=== PATIENT | female | born 1985 | race Caucasian/White ===

== ENCOUNTER 2023-06-06 11:29 | Outpatient (CLI) | payer OTHER, SELFPAY ==
[2023-06-06 12:46] LABS: Basophils Absolute Auto 0.1 K/mm3 (0.0-0.1); Basophils Percent Auto 1.2 % (0.2-1.2); Eosinophils Absolute Auto 0.1 K/mm3 (0-0.3); Hematocrit 38.5 % (37.0-47.0); Hemoglobin 12.3 g/dL (12.0-15.0); Immature Granulocyte Absolute 0.01 K/mm3 (0.00-0.031); Immature Granulocyte Percent A 0.2 % (0-0.5); Lymphocytes Percent Auto 27.2 % (18.3-44.2); Mean Corpuscular HGB Conc 31.9 g/dl (32-36); Mean Corpuscular Hemoglobin 27.9 pg (26-34); Mean Corpuscular Volume 87.3 fl (80-100); Mean Platelet Volume 9.4 fl (7.4-10.4); Monocytes Absolute Auto 0.3 K/mm3 (0.1-0.6); Monocytes Percent Auto 5.3 % (2.6-8.5); Neutrophils Absolute Auto 3.4 K/mm3 (1.3-6.7); Neutrophils Percent Auto 65.1 % (45.5-73.1); Platelet Count Result 304 k/mm3 (150-375); Red Blood Count 4.41 M/mm3 (4.2-5.4); Red Cell Distribution Width 13.6 % (11.5-14.5); White Blood Count 5.1 K/mm3 (4.5-10.0)
== END 2023-06-06 11:30 | disposition home or self-care (01) ==
PROVIDERS: Visit Provider Internal Medicine Pulmonary Disease
DX: J44.9 Chronic obstructive pulmonary disease, unspecified (principal)
CPT/HCPCS: 36415; 85025

== ENCOUNTER 2023-07-06 09:49 | Outpatient (CLI) | payer OTHER, SELFPAY ==
--- NOTE | 2023-07-06 13:54 | WPDPFTINT ---
PFT Procedure Performed PFT Procedure Performed Spirometry with Pre/Post Bronchodilator Plethysmography (Lung Vol) Diffusing Cap (DLCO) Flow Vol Loop PFT Interpretation Lung volumes were measured with the body plethysmography method. Lung volumes are unremarkable. Spirometry showed normal expiratory flow rates and a normal FEV1 to FVC ratio of 87%. Following administration of a bronchodilator there was significant increase in the FVC. Lung diffusion capacity is within the normal range at 97% predicted. The flow-volume loop is unremarkable. This significant response to bronchodilators may be related to underlying obstructive airway disease. Clinical correlation advised. Impression: Spirometry, lung volumes and lung diffusion capacity all within the normal range.
== END 2023-07-06 09:50 | disposition home or self-care (01) ==
LOC: ANHPFT 09:49
PROVIDERS: Visit Provider Internal Medicine Pulmonary Disease
DX: J45.990 Exercise induced bronchospasm (principal)
CPT/HCPCS: 94060; 94726; 94729

== ENCOUNTER 2025-07-20 17:47 | Emergency (ER) | payer OTHER, SELFPAY ==
--- OUTSIDE RECORDS SUMMARY | 2018-07-25 06:05 | XMS_ITS | Continuity of Care Document ---
Author Organization [facility] Address [address] [place] [address] Phone Care Team Providers Care Medical Records Receptionist Name Role Phone Andrew Coffman MD Unavailable Unavailable Advance Directives Directive Yes / No Effective Date File Name No Information Encounters Encounter Description Practice Location Reason(s) For Visit Diagnoses Date Provider Providers Copied on Encounter [facility], [address], [place], [place], [id number], [place] tel:[phone] [facility] [place] No Information 8 Augustus Morales. [address], [place], [place], [id number] , [place]. [phone] Family History Family Member Type Diagnosis Age At Onset No Information Payers Payer name Insurance type Covered republican ID Authoriza tion(s) No Information Social History Type Description Quantity Date Captured Comments Sex Female Smoking Status No Information Chief Complaint And Reason For Visit No Information Reason For Referral Reason For Referral No Information History Of Present Illness Encounter Date Complaint History Of Prese nt Illness No Information Functional Status Date Functional Assessmen t No Information Instructions Date Instruction Additional Infor mation No Information Assessments Type Assessment Date No Information Patient Care Teams Name Effective Dates (start - stop) Status Members No Information
--- OUTSIDE RECORDS SUMMARY | 2025-03-03 04:00 | XMS_ITS ---
Author Organization [facility] Address [address] [place] [address] Care Team Providers Care Broth Mixer Name Role Phone Cesia Morgan [phone] REASON FOR VISIT Thyroid FU Encounters Encounter Location Date Provider Diagnosis AMMO Dr. Morgan [id number] [place] [phone] 03/03/2025 Cesia Morgan Plan Of Treatment Next Appt Details Provider Name:Cesia Morgan, 10:40:00 AM, [address] [place] [address], [phone], Progress Notes * Jose Ramon ROGELOB:1985 (40 yo F)Acc No.[id number]:03/03/2025 Progress Notes Patient: Alysia Bermudez Provider: Elaine Morgan MD :1985 A ge:39 Y S ex:Female Date:03/03/2025 Phone: Address:[facility] [address] [id number] Subjective: * Chief Complaints: * T hyroid FU * Electronic signature of Adolfo Morgan MD on 07/20/2025 at 05:50 PM CDT Sign off status: Pending * Provider: Elaine Morgan MD Date: 0 03/03/2025 Generated for Printi ng/Familtong/eTransmitting on: 1 05:50 PM CDT
--- OUTSIDE RECORDS SUMMARY | 2025-05-08 03:40 | XMS_ITS ---
Author Organization [facility] Address [address] [place] [address] Care Team Providers Care Pcat Instructor Name Role Phone Cesia Morgan [phone] REASON FOR VISIT lab (text) Encounters Encounter Location Date Provider Diagnosis AMMO Dr. Morgan [address] [place] [phone] 05/08/2025 Cesia Morgan Plan Of Treatment Next Appt Details Provider Name:Cesia Eddie, 10:40:00 AM, [address] [place] [address], [phone], Progress Notes * Jose Ramon ROGELOB:1985 (40 yo F)Acc No.[id number]:05/08/2025 Progress Note Patient: Alysia Bermudez Provider: Elaine Morgan MD :1985 A ge:40 Y S ex:Female Date:05/08/2025 Phone: Address:[facility] [address] [id number] Subjective: * Chief Complaints: * L ab (text) * Electronic signature of Adolfo Morgan MD on 07/20/2025 at 05:49 PM CDT Sign off status: Pending * Provider: Elaine Morgan MD Date: 0 05/08/2025 Generated for Printi ng/Faxing/eTransmitting on: 1 05:49 PM CDT
--- OUTSIDE RECORDS SUMMARY | 2025-05-16 05:00 | XMS_ITS ---
Author Organization [facility] Address [address] [place] [address] Care Team Providers Care Miniature Model Maker Name Role Phone Eddie Cesiadominik Johnson [phone] REASON FOR VISIT lab follow up Medications Medication SIG (Take, Route, Frequency, Duration) Notes Start Date End Date Status Ergocalciferol 1.25 MG (98529 UT) Capsule 1 capsule Orally weekly; Duration: 90 days 01/22/2025 Active Zoloft 25 MG Tablet 1 tablet Orally Once a day Active dexAMETHasone 1 MG Tablet 1 tablet Orally at 10 pm night before 8 am cortisol; Duration: 1 days 04/25/2025 Active Unithroid 75 MCG Tablet 1 tablet in the morning on an empty stomach Orally Once a day; Duration: 90 days 02/25/2025 Active BuSpar 15 mg twice daily Active Topamax 25 MG Tablet 1 tablet Orally Onc e a day in am Active Topamax 150mg at night Activ e ZyrTEC 10 MG Tablet Chewable 1 tablet Orally Once a day Active Unithroid 75 MCG Tablet 1 tablet in the morning on an empty stomach Orally Once a day; Duration: 30 days 01/22/2025 Active Encounters Encounter Location Date Provider Diagnosis AMMO Dr. Morgan [address] [place] [phone] 05/16/2025 Cesia Morgan Plan Of Treatment Next Appt Details Provider Name:Cesia Morgan, 10:40:00 AM, [address] [place] [address], [phone], Progress Notes * Jose Ramon ROGELOB:1985 (40 yo F)Acc No.[id number]:05/16/2025 Progress Notes Patient: Alysia Bermudez Provider: Elaine Morgan MD :1985 A ge:40 Y S ex:Female Date:05/16/2025 Phone: Address:[address], [place], [id number] Subjective: * Chief Complaints: * L ab follow up * Medications: T akingUnithroid 75 MCG Tablet 1 tablet in the morning on an empty stomach Orally Once a day ZyrTEC 10 MG Tablet Chewable 1 tablet Orally Once a day Topamax , Notes to Pharmacist: 150mg at nightTopamax 25 MG Tablet 1 tablet Orally Once a day in am BuSpar , Notes to Pharmacist: 15 mg twice dailyZoloft 25 MG Tablet 1 tablet Orally Once a day Ergocalciferol 1.25 MG (50623 UT) Capsule 1 capsule Orally weekly Unithroid 75 MCG Tablet 1 tablet in the morning on an empty stomach Orally Once a day dexAMETHasone 1 MG Tablet 1 tablet Orally at 10 pm night before 8 am cortisol Taking Unithroid 75 MCG Tablet 1 tablet in the morning on an empty stomach Orally Once a day Taking ZyrTEC 10 MG Tablet Chewable 1 tablet Orally Once a day Taking Topamax , Notes to Pharmacist: 150mg at nightTaking Topamax 25 MG Tablet 1 tablet Orally Once a day in am Taking BuSpar , Notes to Pharmacist: 15 mg twice dailyTaking Zoloft 25 MG Tablet 1 tablet Orally Once a day Taking Ergocalciferol 1.25 MG (03878 UT) Capsule 1 capsule Orally weekly Taking Unithroid 75 MCG Tablet 1 tablet in the morning on an empty stomach Orally Once a day Taking dexAMETHasone 1 MG Tablet 1 tablet Orally at 10 pm night before 8 am cortisol * Electronic signature of Adolfo Morgan MD on 07/20/2025 at 05:50 PM CDT Sign off status: Pending * Provider: Elaine Morgan MD Date: 0 05/16/2025 Generated for Reymundo nicole/Rosemary/José on: 1 05:50 PM CDT
--- OUTSIDE RECORDS SUMMARY | 2025-05-19 07:30 | XMS_ITS ---
Author Organization [facility] Address [address] [place] [address] Care Team Providers Care Training And Development Director Name Role Phone Cesia Morgan [phone] REASON FOR VISIT lab review Encounters Encounter Location Date Provider Diagnosis AMMO Dr. Morgan [address] [place] [phone] 05/19/2025 Cesia Morgan Plan Of Treatment Next Appt Details Provider Name:Cesia Morgan, 10:40:00 AM, [address] [place] [address], [phone], Progress Notes * Jose Ramon ROGELOB:1985 (40 yo F)Acc No.[id number]:05/19/2025 Progress Notes Patient: Alysia Bermudez Provider: Elaine Morgan MD :1985 A ge:40 Y S ex:Female Date:05/19/2025 Phone: Address:[facility] [address] [id number] Subjective: * Chief Complaints: * L ab review * Electronic signature of Adolfo Morgan MD on 07/20/2025 at 05:49 PM CDT Sign off status: Pending * Provider: Elaine Morgan MD Date: 0 05/19/2025 Generated for Printi ng/Faxing/eTransmitting on: 1 05:49 PM CDT
--- NOTE | 2025-07-20 17:49 | ED_ITS ---
HPI - URI/Sore Throat General Chief Complaint: Upper Respiratory Infection Stated Complaint: body aches/throat/ears/headache Time Seen by Provider: 07/20/25 17:58 Source: patient, RN notes reviewed and old records reviewed Mode of arrival: ambulatory Limitations: no limitations History of Present Illness HPI Narrative: 40-year-old female presents to the [facility] with complaints of body aches, sore throat, headache and ear pain since yesterday. Did take Tylenol. Reports daughter tested positive yesterday for strep Treatments prior to arrival: acetaminophen Related Data Home Medications ?Medication ?Instructions ?Recorded ?Confirmed ?Last Taken ?Type buspirone 15 mg tablet 10 mg PO ONCE 06/06/23 Unkn own History cetirizine 10 mg tablet 5 mg PO DAILY PRN 06/06/23 Unknown History topiramate 100 mg tablet (Topamax) 100 mg PO DAILY 02/21 Unknown History levothyroxine 75 mcg tablet mcg 07/20/25 Unknown Hist ory (Unithroid) liothyronine 5 mcg tablet mcg 07/20/25 Unknown Histor y ubrogepant 100 mg tablet (Ubrelvy) mg 07/20/25 Unknow n History Allergies Allergy/AdvReac Type Severity Reaction Status Date / Time hydrocodone Allergy Intermediate itchy Verified 07/20/25 17:58 Review of Systems Review of Systems: All systems reviewed & are unremarkable except as noted in HPI and below Constitutional: Constitutional: Reports as per HPI, Reports body ache(s) and Reports headache(s) ENT: Reports as per HPI, Reports otalgia and Reports sore throat Cardiovascular: Cardiovascular: Reports no additional cardiovascular complaints, Denies chest pain and Denies dyspnea Respiratory: Respiratory: Reports no additional respiratory complaints, Denies chest congestion, Denies cough and Denies dyspnea Musculoskeletal: Musculoskeletal: Reports no additional musculoskeletal complaints Integumentary/Breasts: Skin/Breast: Reports system reviewed and no additional complaints, except as docu PMFSH Past Medical History Medical History Asthma Migraines Plantar fascial fibromatosis of right foot Surgical History Surgical History (Updated 06/06/23 @ 09:02 by Cindy Barker MA) H/O: hysterectomy Family History Family History Mother Anxiety Depression Father H/O heart artery stent Social History Social History Smoking status: Former smoker Comments At the time of my signature, I reviewed and agree with the nursing past medical, surgical, social, and family history. There is no relevant family history pertinent to the patient complaint. Exam Const: General: cooperative, no acute distress, well developed, alert, tired appearing and well nourished Nutritional Appearance: well nourished Orientation/consciousness: patient oriented x3 Limitations: no limitations HENMT: Head: normal to inspection Ears: hearing grossly normal bilaterally, external ears normal, TM normal on the left and TM abnormal perforated (2:00 o'clock, chronic); not erythematous Face/Nose/Sinus: Normal external nose present, Normal nares present and Normal nasal mucous membranes and turbinates present Mouth: Yes Normal oral and palatal mucosa present, Yes lip normal, Yes tongue normal and Yes moist mucous membranes abnormal Throat: posterior oropharynx normal, uvula midline and no uvular edema Eyes: General: appearance normal, both eyes and all related structures Alignment and Position: alignment normal Neck: Neck: normal visual inspection, full ROM, no lymphadenopathy and no meningeal signs Chest: Chest palpation & inspection: normal inspection of the chest Resp: Effort & Inspection: normal respiratory effort and able to speak in comp lete sentences Auscultation: clear to auscultation bilaterally, no crackles, no rales, no rhonchi and no wheezes Cardio: Rate: regular rate Skin: General skin exam: normal color and no rashes or lesions noted Neuro: General: patient oriented x3, gait normal, moves all extremities and no meningeal signs Cognition (Neuro): normal cognition Speech: normal speech Gait exam (Neuro): Normal gait present Extrem: General: normal to inspection, full ROM, capillary refill normal and normal gait Psych: Appearance: grossly normal and well kempt Mental Status: mental status grossly normal Speech and movement: Normal speech and movement present and Clear speech present Affect: normal affect Attitude: cooperative Course Course Level of Care: Express Care Visit Vital Signs Vital signs: Vital Signs Temperature 97.6 F 07/20/25 17:52 Pulse Rate 68 07/20/25 17:52 Respiratory Rate 20 07/20/25 17:52 Blood Pressure 123/60 07/20/25 17:52 Pulse Oximetry 98 07/20/25 17:52 Oxygen Delivery Room Air 07/20/25 17:52 Temperature 97.6 F 07/20/25 17:52 Pulse Rate 68 07/20/25 17:52 Respiratory Rate 20 07/20/25 17:52 Blood Pressure 123/60 07/20/25 17:52 Pulse Oximetry 98 07/20/25 17:52 Oxygen Delivery Room Air 07/20/25 17:52 Reviewed MDM - URI/Sore Throat MDM Narrative Medical decision making narrative: Patient sitting comfortably in exam room. Patient is nontoxic, vitals stable. Patient presents with 1 day history of sore throat, body aches, headache and ear pain. Strep flu and COVID are negative, will strep culture. Patient appropriate for outpatient treatment with close follow-up of viral URI, viral pharyngitis Discharge instructions reviewed with patient, as well as provided in writing per nursing staff. The instructions also include specific and strict return/GO TO THE ER as well as f/u information. All questions have been answered, and the patient deny any further questions with discharge and discharge plan. Some parts of this dictation were generated by voice recognition software and may contain typographical and/or grammatical inaccuracies. Differential Diagnosis Differential diagnosis: Likely upper respiratory infection, otitis media, sinusitis, viral infection, bronchitis, influenza and pharyngitis Lab Data Labs: Lab Results 07/20/25 07/20/25 Range/Units 18:07 18:25 POC Influenza A Ag Negative (Negative) POC Influenza B Ag Negative (Negative) POC SARS CoV-2 Ag Negative (Negative) POC Grp A Strep Screen Negative (Negative) Reviewed Critical Care Time Critical Care Time Critical Care Time: No Discharge Plan Discharge Clinical Impression: Viral infection Upper respiratory infection Qualifiers: URI type: unspecified viral URI Qualified Code(s): J06.9 - Acute upper respiratory infection, unspecified Pharyngitis Qualifiers: Pharyngitis/tonsillitis etiology: unspecified etiology Qualified Code(s): J02.9 - Acute pharyngitis, unspecified Patient Disposition: Home Condition: Stable Instructions: Antibiotic Form, Pharyngitis (ED), Viral Syndrome (ED) Additional Instructions: Your rapid strep swab was negative today at [facility]. A throat culture will be sent to the laboratory for further testing. If the test is positive, you will receive a phone call within 48 hours and an appropriate antibiotic will be initiated at that time. Your rapid COVID test were negative Your rapid flu test was negative Your symptoms are likely due to a viral illness, which is not treated with antibiotics. Typically viral infections last 7-10 days, can linger for couple of weeks. It is very important to treat your symptoms. Drink plenty of water, Gatorade, Pedialyte, ice pops or Jell-O. -Alternate Tylenol and Motrin per package directions for fever or pain. You can alternate every 4 hours -Antihistamine medication such as Zyrtec/Claritin/Kristy during the day can help improve symptoms. -doing daily nasal irrigations can help relieve pressure your sinuses. Things like a Neti pot -Use Flonase twice a day for 5 days then daily to help reduce the inflammation and dry up your sinuses. -You can also use Mucinex. Be sure to drink plenty of water with this medication at least 8 ounces with every dose and it is important to drink 8 to 10 glasses of water per day. Water is a natural decongestant -Eat and drink things that are easy to swallow, like tea or soup, or popsicles. -Oral rinses such as: Salt water gargles and/or may use topical anesthetic (eg. Chloraseptic spray) or lozenges to relieve dryness or throat pain). -Frequent hand washing or hand terra cotta roofer is one of the best ways to prevent spread of infection. -Using a vaporizer or humidifier at night will also help thin secretions and help with coughing up phlegm. -Follow up with primary care provider in 7-10 days if condition is not improving - For new or worsening symptoms go directly to the nearest ER Patient Language: Turkmen Prescriptions: No Action liothyronine 5 mcg tablet levothyroxine [Unithroid] 75 mcg tablet Ubrelvy 100 mg tablet cetirizine 10 mg tablet 5 mg PO DAILY PRN buspirone 15 mg tablet 10 mg PO ONCE topiramate [Topamax] 100 mg tablet 100 mg PO DAILY Follow-up/Referrals: UNKNOWN,DOCTOR [Non-Staff] Stand Alone Forms: Work/School Release IP Time of Disposition: 18:17
--- OUTSIDE RECORDS SUMMARY | 2025-07-20 17:49 | XMS_ITS | Encounter Summary ---
Author Organization [facility] Address [address] [place] [address] Care Team Providers Care Order Dispatcher Name Role Phone Unavailable Primary Care Provider Unavailabl e Prior Encounters Date Type Department Care Team Description 10/21/2019 Converted 13x Documents [facility] [address] [place] [address] <No scans attached> 10/21/2019 Converted CPS Chart Documents [facility] [address] [place] [address] <No scans attached> 10/21/2019 Converted 13x Documents [facility] [address] [place] [address] <No scans attached> Plan of Treatment Not on file Procedures Procedure Name Priority Date/Time Associated Diagnosis Comments PERIO MAINTENANCE Routine 09/19/2019 12: 00 AM PST ORAL HYGIENE INSTRUCTIONS Routine 2018 12:00 AM PST TOPICAL APPLICATION OF FLUORIDE VARNISH Routine 09/19/2019 12:00 AM PST PERIO MAINTENANCE Routine 06/06/2019 12: 00 AM PDT ORAL HYGIENE INSTRUCTIONS Routine 2018 12:00 AM PDT TOPICAL APPLICATION OF FLUORIDE VARNISH Routine 06/06/2019 12:00 AM PDT PERIODIC ORAL EVALUATION - ESTABLISHED PATIENT Routine 06/06/2019 12:00 AM PDT BITEWINGS - FOUR RADIOGRAPHIC IMAGES Routine 06/06/2019 12:00 AM PDT ADDITIONAL X-RAY Routine 06/06/2019 12:0 0 AM PDT ADDITIONAL X-RAY Routine 06/06/2019 12:0 0 AM PDT ADDITIONAL X-RAY Routine 06/06/2019 12:0 0 AM PDT ADDITIONAL X-RAY Routine 06/06/2019 12:0 0 AM PDT ADDITIONAL X-RAY Routine 06/06/2019 12:0 0 AM PDT SINGLE X-RAY Routine 06/06/2019 12:00 AM PDT INTRAORAL PHOTO Routine 06/06/2019 12:00 AM PDT INTRAORAL PHOTO Routine 06/06/2019 12:00 AM PDT INTRAORAL PHOTO Routine 06/06/2019 12:00 AM PDT INTRAORAL PHOTO Routine 06/06/2019 12:00 AM PDT PERIO MAINTENANCE Routine 02/28/2019 12: 00 AM PDT ORAL HYGIENE INSTRUCTIONS Routine 2018 12:00 AM PDT COMPREHENSIVE PERIODONTAL EVALUATION - NEW OR ESTABLISHED PATIENT Routine 02/13/2019 12:00 AM PDT CANCELLED APPOINTMENT Routine 01/03/2019 12:00 AM PDT OFFICE VISIT FOR OBSERVATION (DURING REGULARLY SCHEDULED HOURS) - NO OTHER SERVICES PERFORMED Routine 11/23/2018 12:00 AM PST 2 DOL CEREC ONLAY 3 SURF Routine 019 12:00 AM PST 2 SEAT ONLAY Routine 11/19/2018 12:00 AM PST UR PERIODONTAL SCALING AND ROOT PLANING - FOUR OR MORE TEETH PER QUADRANT Routine 11/19/2018 12:00 AM PST UL PERIODONTAL SCALING AND ROOT PLANING - FOUR OR MORE TEETH PER QUADRANT Routine 11/19/2018 12:00 AM PST LR PERIODONTAL SCALING AND ROOT PLANING - FOUR OR MORE TEETH PER QUADRANT Routine 11/19/2018 12:00 AM PST LL PERIODONTAL SCALING AND ROOT PLANING - FOUR OR MORE TEETH PER QUADRANT Routine 11/19/2018 12:00 AM PST ORAL HYGIENE INSTRUCTIONS Routine 2018 12:00 AM PST LR RO DECON/QD Routine 11/19/2018 12:00 AM PST LL RO DECON/QD Routine 11/19/2018 12:00 AM PST UL RO DECON/QD Routine 11/19/2018 12:00 AM PST UR RO DECON/QD Routine 11/19/2018 12:00 AM PST UR ANTIBACT IRR/QUAD Routine 11/19/2018 12:00 AM PST UL ANTIBACT IRR/QUAD Routine 11/19/2018 12:00 AM PST LR ANTIBACT IRR/QUAD Routine 11/19/2018 12:00 AM PST LL ANTIBACT IRR/QUAD Routine 11/19/2018 12:00 AM PST TOPICAL APPLICATION OF FLUORIDE VARNISH Routine 11/19/2018 12:00 AM PST 14 LO COMPOSITE FILLING Routine 11/19/19 19 12:00 AM PST 3 LO COMPOSITE FILLING Routine 9 12:00 AM PST 30 O COMPOSITE FILLING Routine 9 12:00 AM PST 29 O COMPOSITE FILLING Routine 9 12:00 AM PST 20 O COMPOSITE FILLING Routine 9 12:00 AM PST 13 O COMPOSITE FILLING Routine 9 12:00 AM PST 4 O COMPOSITE FILLING Routine 11/19/2018 12:00 AM PST 11 L COMPOSITE FILLING Routine 9 12:00 AM PST 10 L COMPOSITE FILLING Routine 9 12:00 AM PST 9 L COMPOSITE FILLING Routine 11/19/2018 12:00 AM PST 31 POST AND CORE IN ADDITION TO CROWN, INDIRECTLY FABRICATED Routine 10/31/2018 12:00 AM PST 31 CROWN - FULL CAST HIGH GALLAGHER METAL Routine 10/31/2018 12:00 AM PST 19 O AMALGAM 1 SURFACE Routine 9 12:00 AM PST 18 O AMALGAM 1 SURFACE Routine 9 12:00 AM PST 15 O AMALGAM 1 SURFACE Routine 9 12:00 AM PST 14 O AMALGAM 1 SURFACE Routine 9 12:00 AM PST 3 O AMALGAM 1 SURFACE Routine 10/31/2018 12:00 AM PST 2 O AMALGAM 1 SURFACE Routine 10/31/2018 12:00 AM PST 31 ENDODONTIC THERAPY, MOLAR TOOTH (EXCLUDING FINAL SHINTO) Routine 10/31/2018 12:00 AM PST COMPREHENSIVE ORAL EVALUATION - NEW OR ESTABLISHED PATIENT Routine 10/31/2018 12:00 AM PST PANORAMIC RADIOGRAPHIC IMAGE Routine 10/31/2018 12:00 AM PST INTRAORAL - COMPREHENSIVE SERIES OF RADIOGRAPHIC IMAGES Routine 10/31/2018 12:00 AM PST INTRAORAL PHOTO Routine 10/31/2018 12:00 AM PST INTRAORAL PHOTO Routine 10/31/2018 12:00 AM PST INTRAORAL PHOTO Routine 10/31/2018 12:00 AM PST INTRAORAL PHOTO Routine 10/31/2018 12:00 AM PST 30 O COMPOSITE FILLING Routine 9 12:00 AM PST 7 L COMPOSITE FILLING Routine 10/31/2018 12:00 AM PST Visit Diagnoses Not on file
--- OUTSIDE RECORDS SUMMARY | 2025-07-20 17:49 | XMS_ITS | Encounter Summary ---
Author Organization [facility] Address [address] [place] [address] Care Team Providers Care Burial Vault Deliverer And Installer Name Role Phone None, Provider Primary Care Provider Wu Santillan DO Primary Care Provider [phone] Encounter Details Date Type Department Care Team (Late st Contact Info) Description 12/22/2022 Prep for Procedure [facility] [place] [address] Adeline Woods MD [address] [place] [address] Social History Tobacco Use Types Packs/Day Years Used Date Smoking Tobacco: Never Smokeless Tobacco: Never Alcohol Use Standard Drinks/Week Comments Not Currently 0 (1 standard drink = 0.6 oz pur e alcohol) a beer or two a month Comments No Sex and Gender Information Value Date Recorded Sex Assigned at Female 11/22/2024 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 No / Unsure 12/22/2022 3:27 PM CDT documented as of this encounter Plan of Treatment Upcoming Encounters Date Type Department Care Team (Late st Contact Info) Description 03/02/2026 9:00 AM CDT Office Visit [facility]ial[facility] - [facility] [address], [address] [place] [address] Luna Thornton MD [address] [place] [address] documented as of this encounter Results * TYPE & SCREEN (12/22/2022 3:35 PM CDT) ABO/RH A POSITIVE 12/22/2022 4:35 PM CDT [facility] ANTIBODY SCREEN NEGATIVE 12/22/2022 4:35 PM CDT [facility] SAMPLE EXPIRATION 01/07/2023,2 359 01/04/2023 7:55 AM CDT [facility] COMMENT NO HISTORY OF TRANSFUSIONS , OR ANTIBODIES, NEW SPECIMEN NOT NEEDED 01/04/2023 7:55 AM CDT [facility] 12/22/2022 3:35 PM CDT us Adeline Woods MD BLOOD BANK TEST ORDERABLES Final Result [facility] [address] [place] [address], [place] [phone] * (ABNORMAL) CBC W/DIFF AUTOMATED (12/22/2022 3:34 PM CDT) WBC 5.9 4.5 - 11.0 x10'3/uL 12/22/2022 3:52 PM CDT [facility] RBC 4.57 4.20 - 5.40 x10'6/uL 12/22/2022 3:52 PM CDT [facility] HGB 11.7(L) 12.0 - 16.0 G/DL 12/22/2022 3:52 PM CDT [facility] HCT 37.9(L) 38.0 - 48.0 % 12/22/2022 3:52 PM CDT [facility] MCV 82.9 81.0 - 99.0 FL 12/22/2022 3:52 PM CDT [facility] MCH 25.6(L) 27.0 - 31.0 PG 12/22/2022 3:52 PM CDT [facility] MCHC 30.9(L) 32.0 - 36.0 G/DL 12/22/2022 3:52 PM CDT [facility] RDW 14.3 11.5 - 14.5 % 12/22/2022 3:52 PM CDT [facility] PLT 337 130 - 400 x10'3/uL 12/22/2022 3:52 PM CDT [facility] MPV 9.3 9.3 - 12.2 FL 12/22/2022 3:52 PM CDT [facility] DIFFERENTIAL TYPE AUTOMATED DIFFERENTIAL 12/22/2022 3:52 PM CDT [facility] NEUTROPHILS % 66.3 % 12/22/2022 3:52 PM CDT [facility] LYMPHOCYTES % 26.0 % 12/22/2022 3:52 PM CDT [facility] MONOCYTES % 5.9 % 12/22/2022 3:52 PM CDT [facility] EOSINOPHILS 1.0 % 12/22/2022 3:52 PM CDT [facility] BASOPHILS 0.5 % 12/22/2022 3:52 PM CDT [facility] IMMATURE GRANS % 0.3 % 12/23/19 3:52 PM CDT [facility] ABS. NEUTROPHILS TOTAL 3.90 1.80 - 7.70 x10'3/uL 12/22/2022 3:52 PM CDT [facility] ABS. LYMPHOCYTES 1.53 1.00 - 4.80 x10'3/uL 12/22/2022 3:52 PM CDT [facility] ABS. MONOCYTES 0.35 0.24 - 0.86 x10'3/uL 12/22/2022 3:52 PM CDT [facility] ABS. EOSINOPHILS 0.06 0.04 - 0.36 x10'3/uL 12/22/2022 3:52 PM CDT [facility] ABS. BASOPHILS 0.03 0.01 - 0.08 x10'3/uL 12/22/2022 3:52 PM CDT [facility] ABS. IMMATURE GRANULOCYTES 0.02 0.00 - 0.49 x10'3/uL 12/22/2022 3:52 PM CDT [facility] 12/22/2022 3:34 PM CDT us Adeline Woods MD LABORATORY Final Result [facility] [address] [place] [address], documented in this encounter Visit Diagnoses Diagnosis Menorrhagia- Primary Excessive or frequent menstruation Dysmenorrhea Preop examination Preoperative examination, unspecified documented in this encounter Care Teams Burial Vault Deliverer And Installer Relationship Specialty Start Date End Date None, Provider, PCP - General 06/03/22 03/30/25 Wu Valerio DO [address] [facility], [address] [address] PCP - General FAMILY PRACTICE 03/31/25 documented as of this encounter
--- OUTSIDE RECORDS SUMMARY | 2025-07-20 17:49 | XMS_ITS | Clinical Summary ---
Author Organization [facility] Health Address [address] [place] [address] Care Team Providers Care Director [facility] Name Role Phone Unavailable Primary Care Provider Unavailabl e Social History Tobacco Use Types Packs/Day Years Used Date Smoking Tobacco: Never Assessed Comments Unknown Sex and Gender Information Value Date Recorded Sex Assigned at Not on file Legal Sex Female 5:27 AM PST Gender Identity Not on file Sexual Orientation Not on file Plan of Treatment Not on file
--- OUTSIDE RECORDS SUMMARY | 2025-07-20 17:49 | XMS_ITS | Patient Health Record ---
Author Organization [facility] Address [address] [place] [address] Care Team Providers Care Dye Penetrant Testing Technician Name Role Phone Cesia Morgan Unavailable [phone] Allergies No Known Allergies Results Component Value Reference Range Flag Notes .COMPREHENSIVE METABOLIC READ EL ([id number]) CMP Reviewed date:04/15/2025 12:53:38 PM Interpretation: Performing Lab:[facility]-[id number] Gadiel Chahal, YcjlycWT[address] Leno Moreno MD Notes/Report: FASTING:YES FASTING: YES GLUCOSE 100 65-99 mg/dL H For someone without known diabetes, a glucose value between 100 and 125 mg/dL is consistent with Fasting reference interval prediabetes and should be confirmed with a follow-up test. UREA NITROGEN (BUN) 10 7-25 mg/dL N CREATININE 0.69 0.50-0.97 mg/dL N EGFR 113 > OR = 60 mL/min/1.73m 2 N BUN/CREATININE RATIO SEE NOTE: 6-22 (calc) Not Reported: BUN and Creatinine are within reference range. SODIUM 138 135-146 mmol/L N POTASSIUM 4.3 3.5-5.3 mmol/L N CHLORIDE 111 98-110 mmol/L H CARBON DIOXIDE 20 20-32 mmol/L N CALCIUM 9.0 8.6-10.2 mg/dL N PROTEIN, TOTAL 6.6 6.1-8.1 g/dL N ALBUMIN 4.1 3.6-5.1 g/dL N GLOBULIN 2.5 1.9-3.7 g/dL (calc) N ALBUMIN/GLOBULIN RATIO 1.6 1.0-2.5 (calc) N BILIRUBIN, TOTAL 0.6 0.2-1.2 mg/dL N ALKALINE PHOSPHATASE 72 31-125 U/L N AST 12 10-30 U/L N ALT 14 6-29 U/L N .LIPID PANEL, STANDARD (7600 ) Reviewed date:04/10/2025 12:17:11 PM Interpretation: Performing Lab:HARISH [facility] An[facility]-[id number] Gadiel Chahal, IelatqLC[address] Leno Moreno MD Notes/Report: FASTING:YES FASTING: YES CHOLESTEROL, TOTAL 193 <200 mg/dL N HDL CHOLESTEROL 45 > OR = 50 mg/dL L TRIGLYCERIDES 84 <150 mg/dL N LDL-CHOLESTEROL 130 H Checo SS et al. KVNG. 2013;310(19): 6490-5965 (http://education.Trov/faq/UEJ591) with > or = 2 CHD risk factors. <70 mg/dL for patients with CHD or diabetic patients better accuracy than the Friedewald equation in the Reference range: <100 Desirable range <100 mg/dL for primary prevention; estimation of LDL-C. LDL-C is now calculated using the Muriel calculation, which is a validated novel method providing CHOL/HDLC RATIO 4.3 <5.0 (calc) N NON HDL CHOLESTEROL 148 <130 mg/dL (calc) H option. factor, treating to a non-HDL-C goal of <100 mg/dL (LDL-C of <70 mg/dL) is considered a therapeutic For patients with diabetes plus 1 major ASCVD risk .CBC (INCLUDES DIFF/PLT) (63 99) Reviewed date:04/10/2025 12:16:46 PM Interpretation: Performing Lab:Grant MOREIRA-[id number] Gadiel Chahal, CeowupLH[address] Leno Moreno MD Notes/Report: FASTING:YES FASTING: YES WHITE BLOOD CELL COUNT 6.0 3.8-10.8 Thousand/uL N RED BLOOD CELL COUNT 4.81 3.80-5.10 Million/uL N HEMOGLOBIN 13.7 11.7-15.5 g/dL N HEMATOCRIT 43.4 35.0-45.0 % N MCV 90.2 80.0-100.0 fL N MCH 28.5 27.0-33.0 pg N MCHC 31.6 32.0-36.0 g/dL L not clinically significant; however, it should be For adults, a slight decrease in the calculated MCHC interpreted with caution in correlation with other condition. value (in the range of 30 to 32 g/dL) is most likely red cell parameters and the patient's clinical RDW 12.4 11.0-15.0 % N PLATELET COUNT 282 140-400 Thousand/uL N MPV 8.9 7.5-12.5 fL N ABSOLUTE NEUTROPHILS 3726 0946-2193 cells/uL N ABSOLUTE LYMPHOCYTES [phone] cells/uL N ABSOLUTE MONOCYTES 348 200-950 cells/uL N ABSOLUTE EOSINOPHILS 90 15-500 cells/uL N ABSOLUTE BASOPHILS 30 0-200 cells/uL N NEUTROPHILS 62.1 N LYMPHOCYTES 30.1 N MONOCYTES 5.8 N EOSINOPHILS 1.5 N BASOPHILS 0.5 N ANALYZER(TM)JONE, IFA WITH RE FLEX TITER/PATTERN, SYSTEMIC AUTOIMMUNE PANEL 1 (48260) Reviewed date:06/22/2025 05:39:34 PM Interpretation: Performing Lab:EZ, [facility],[address] [facility], [facility] HospitalLrgoyopgjdGN[address] Desi Quick MD,PhD,FREDI Notes/Report: JONE SCREEN, IFA NEGATIVE NEGATIVE For additional information, please refer to suspicion for Sjogren's syndrome, testing for anti-SS-A/Ro (This link is being provided for informational/educational time, but is not definitive. If there is high clinical AC-0: Negative http://education.[facility] LearnShark.com/faq/UBO142 JONE IFA is a first line screen for detecting the presence of considered for clinically suspected inflammatory myopathies. antibody should be considered. Anti-Ariadna-1 antibody should be https://doi.org/10.1515/cclm -8788-0720 up to approximately 150 autoantibodies in various autoimmune purposes only.) International Consensus on JONE Patterns JONE-associated autoimmune disease is not present at this diseases. A negative JONE IFA result suggests an DNA AB (DS) CRITHIDIA,IFA NEGATIVE NEGATIVE CHROMATIN (NUCLEOSOMAL) ANTIBODY <1.0 NEG <1.0 NEGATIVE AI SM ANTIBODY <1.0 NEG <1.0 NEGATIVE AI SM/MAGAZINE SUPERVISOR ANTIBODY <1.0 NEG <1.0 NEGATIVE AI MAGAZINE SUPERVISOR ANTIBODY <1.0 NEG <1.0 NEGATIVE AI SJOGREN'S ANTIBODY (SS-A) <1.0 NEG <1.0 NEGATIVE AI SJOGREN'S ANTIBODY (SS-B) <1.0 NEG <1.0 NEGATIVE AI SCL-70 ANTIBODY <1.0 NEG <1.0 NEGATIVE AI ARIADNA-1 ANTIBODY <1.0 NEG <1.0 NEGATIVE AI CENTROMERE B ANTIBODY <1.0 NEG <1.0 NEGATIVE AI COMPLEMENT COMPONENT C3C 127 83-193 mg/dL COMPLEMENT COMPONENT C4C 26 15-57 mg/dL CARDIOLIPIN AB (IGA) <2.0 > or = 20.0 Antibody detected Value Interpretation <20.0 Antibody not detected ----- CARDIOLIPIN AB (IGG) <2.0 > or = 20.0 Antibody detected <20.0 Antibody not detected ----- Value Interpretation CARDIOLIPIN AB (IGM) <2.0 ----- > or = 20.0 Antibody detected Value Interpretation <20.0 Antibody not detected B2 GLYCOPROTEIN I (IGA)AB <2.0 > or = 20.0 Antibody detected ----- Value Interpretation <20.0 Antibody not detected B2 GLYCOPROTEIN I (IGG)AB <2.0 > or = 20.0 Antibody detected Value Interpretation ----- <20.0 Antibody not detected B2 GLYCOPROTEIN I (IGM)AB <2.0 at least 12 weeks before retesting to confirm antibody morbidity) and persistent positive antiphospholipid level antiphospholipid antibodies may sometimes be detected ----- <20.0 Antibody not detected clinical-pathologic correlation that includes a clinical purposes only.) http://education.[employer].com/faq/ERV044 lupus erythematosus (SLE) include testing for isotype IgA, antibodies (IgM, IgG Cardiolipin or b2GPI antibodies greater in the setting of infection, drug therapy or aging. persistence. The Systemic Lupus International Collaborating (This link is being provided for informational/educational > or = 20.0 Antibody detected which has yet to be incorporated into APS criteria. Low event (e.g. arterial or venous thrombosis, International consensus guidelines for APS suggest waiting Clinics immunological classification criteria for systemic The antiphospholipid antibody syndrome (APS) is a than the 99th percentile; or a lupus anticoagulant). Value Interpretation For additional information, please refer to RHEUMATOID FACTOR (IGA) <5 Reference Range: >6 POSITIVE <=6 NEGATIVE RHEUMATOID FACTOR (IGG) <5 Reference Range: >6 POSITIVE <=6 NEGATIVE RHEUMATOID FACTOR (IGM) <5 Reference Range: <=6 NEGATIVE >6 POSITIVE CYCLIC CITRULLINATED PEPTIDE (CCP) AB (IGG) <16 STRONG POSITIVE 40-59 20-39 NEGATIVE: Reference Range: >59 MODERATE POSITIVE: WEAK POSITIVE: <20 MUTATED CITRULLINATED VIMENTIN (MCV) AB <20 <20 U/mL rheumatoid factor and anti-cyclic citrullinated peptide a second-line marker of rheumatoid arthritis, in addition to Anti-mutated citrullinated vimentin antibody may be used as (CCP). THYROID PEROXIDASE ANTIBODIES <1 <9 IU/mL .HEMOGLOBIN A1c (496) Reviewed date:04/10/2025 12:17:00 PM Interpretation: Performing Lab:[facility] [id number] [facility] HospitalBlzuvkmON[address] Leno Moreno Notes/Report: FASTING:YES FASTING: YES HEMOGLOBIN A1c 5.4 <5.7 % of total Hgb N metrics may apply to specific patient populations. > or =6.5% Consistent with diabetes of diabetes. guidelines, hemoglobin A1c <7.0% represents optimal 5.7-6.4% Consistent with increased risk for diabetes Standards of Medical Care in Diabetes(ADA). (prediabetes) control in non- diabetic patients. Different hemoglobin A1c for diagnosis of diabetes in children. This assay result is consistent with a decreased risk According to [place] [employer] (ADA) Currently, no consensus exists regarding use of diabetes: For the purpose of screening for the presence of <5.7% Consistent with the absence of diabetes HOMOCYSTEINE (18202) Reviewed date:06/17/2025 07:46:53 PM Interpretation: Performing Lab:HARISH [facility]-[id number] Gadiel Chahal, HdfsyeFR[address] Leno Moreno MD Notes/Report: HOMOCYSTEINE 7.2 < or = 11.0 umol/L N exposure to nitrous oxide. differentiates between these deficiencies. Other causes Homocysteine is increased by functional deficiency of antagonists such as methotrexate and phenytoin, and of increased homocysteine include renal failure, folate Sharon Vasquez, et al., Gely Rn Document Improvement Specialist Med. 1999;131(5):331-9. folate or vitamin B12. Testing for methylmalonic acid INSULIN (561) Reviewed date:04/10/2025 12:16:36 PM Interpretation: Performing Lab:Grant MOREIRA-[id number] BatistaaKS[address] Leno Moreno MD Notes/Report: FASTING:YES FASTING: YES INSULIN 10.8 N Adult cardiovascular event risk category studies performed at [facility] Optimal < or = 18.4 cut points (optimal, moderate, high) in 2021. Moderate NA are based on Insulin Reference Interval Risk: High >18.4 Reference Range < or = 18.4 DHEA SULFATE (402) Reviewed date:05/14/2025 12:15:23 PM Interpretation: Performing Lab:Grant MOREIRA-Fred Newman[address] Leno Moreno MD Notes/Report: FASTING:NO COLLECTION KIT GIVEN TO PATIENT. PATIENT ADVISED TO RETURN. URINE VOLUME: 1999 FASTING: NO DHEA SULFATE 141 19-237 mcg/dL N VITAMIN B12/FOLATE, SERUM PA EUGENIO (3933) Reviewed date:04/10/2025 12:15:40 PM Interpretation: Performing Lab:Grant MOREIRAa1Jonathon LafleuraKS[address] Leno Moreno MD Notes/Report: FASTING:YES FASTING: YES VITAMIN B12 607 283-0901 pg/mL N FOLATE, SERUM 4.8 L Reference Range Borderline: 3.4-5.4 Normal: >5.4 Low: <3.4 T4, FREE (866) Reviewed date:04/10/2025 12:16:27 PM Interpretation: Performing Lab:Grant MOREIRAa1Jonathon LafleuraKS[address] Leno Moreno MD Notes/Report: FASTING:YES FASTING: YES T4, FREE 1.1 0.8-1.8 ng/dL N CORTISOL, TOTAL (367) Reviewed date:06/17/2025 07:46:53 PM Interpretation: Performing Lab:HARISH Advanova Jonathon MedinaaKS[address] Leno Moreno MD Notes/Report: CORTISOL, TOTAL 1.1 L Reference Range: For 4 p.m.(3-5 p.m.) Specimen: 3.0-17.0 relative to results previously obtained with this made in May 2025 by the reagent fly rail operator. The Cortisol result may be decreased on average 10-20% * Please interpret above results accordingly * Reference Range: For 8 a.m.(7-9 a.m.) Specimen: 4.0-22.0 method due to a recent quality improvement CORTISOL, TOTAL (367) Reviewed date:05/08/2025 07:52:01 PM Interpretation: Performing Lab:Grant MOREIRA LenexaKS[address] Leno Moreno MD Notes/Report: FASTING:YES FASTING: YES CORTISOL, TOTAL 29.5 H * Please interpret above results accordingly * Reference Range: For 8 a.m.(7-9 a.m.) Specimen: 4.0-22.0 Reference Range: For 4 p.m.(3-5 p.m.) Specimen: 3.0-17.0 TSH (899) Reviewed date:04/10/2025 12:16:17 PM Interpretation: Performing Lab:Grant MOREIRA LenexaKS[address] Leno Moreno MD Notes/Report: FASTING:YES FASTING: YES TSH 0.08 L Reference Range Ranges > or = 20 Years 0.40-4.50 Third trimester 0.43-2.91 First trimester 0.26-2.66 Second trimester 0.55-2.73 T3, FREE (15946) Reviewed date:04/10/2025 12:15:21 PM Interpretation: Performing Lab:Grant MOREIRA LenexaKS[address] Leno Moreno MD Notes/Report: FASTING:YES FASTING: YES T3, FREE 3.6 2.3-4.2 pg/mL N .VITAMIN D,25-OH,TOTAL,IA (1 7306) Reviewed date:04/10/2025 12:15:10 PM Interpretation: Performing Lab:Grant MOREIRA-[id number] Gadiel Chahal, YyhztkAW[address] Leno Moreno MD Notes/Report: FASTING:YES FASTING: YES VITAMIN D,25-OH,TOTAL,IA 61 30-100 ng/mL N Deficiency: <20 ng/mL (This link is being provided for informational/ educational purposes only.) For additional information, please refer to D2-supplementation and patients for whom quantitation 25-OH VIT D, (D2,D3), LC/MS/MS is recommended: order Vitamin D Status 25-OH Vitamin D: Note 1 http://education.[facility] LearnShark.com/faq/AQL441 See Note 1 Optimal: > or = 30 ng/mL of D2 and D3 fractions is required, the QuestAssureD(TM) Insufficiency: 20 - 29 ng/mL For 25-OH Vitamin D testing on patients on code 77371 (patients >2yrs). CORTISOL, LC/MS, SALIVA, 2 S AMPLES (98299) Reviewed date:05/24/2025 09:38:19 PM Interpretation: Performing Lab:Grant DANG/[facility],[address] [address] [facility] HospitalCA[address] Desi Quick MD,PhD,FREDI Notes/Report: SPLIT 05/13/2025 FROM [id number] URINE VOLUME: DRAW DATE 1 05/12/2025 DRAW TIME 1 0800AM CORTISOL, SALIVA SAMPLE 1 0.10 noon-2 PM: < OR = 0.21 mcg/dL It has not been cleared or approved by the FDA. This assay 10 PM-1 AM: < OR = 0.09 mcg/dL has been validated pursuant to the CLIA regulations and is characteristics have been determined by [facility]. 8-10 AM: 0.04-0.56 mcg/dL This test was developed and its analytical performance used for clinical purposes. 4-6 PM: < OR = 0.15 mcg/dL DRAW DATE 2 05/12/2025 DRAW TIME 2 0700PM CORTISOL, SALIVA SAMPLE 2 0.04 It has not been cleared or approved by the FDA. This assay This test was developed and its analytical performance characteristics have been determined by [facility]. 8-10 AM: 0.04-0.56 mcg/dL 10 PM-1 AM: < OR = 0.09 mcg/dL 4-6 PM: < OR = 0.15 mcg/dL has been validated pursuant to the CLIA regulations and is used for clinical purposes. noon-2 PM: < OR = 0.21 mcg/dL ACTH, PLASMA (211) Reviewed date:05/15/2025 07:21:01 PM Interpretation: Performing Lab:Grant VUONG/Estrellita SaucedotillyDeborah [id number] [facility] , AcuizwhbgAA[address] Johnny Arora M.D.,PhD Notes/Report: FASTING:NO COLLECTION KIT GIVEN TO PATIENT. PATIENT ADVISED TO RETURN. URINE VOLUME: 2000 FASTING: NO ACTH, PLASMA 18 6-50 pg/mL Reference range applies only to specimens collected between 7am-10am. DEXAMETHASONE (19028) Reviewed date:06/22/2025 05:39:34 PM Interpretation: Performing Lab:Grant DANG/[facility],[address] [facility]CA[address] Desi Quick MD,PhD,FREDI Notes/Report: DEXAMETHASONE 282 used for clinical purposes. has been validated pursuant to the CLIA regulations and is This test was developed and its analytical performance Reference Ranges for Dexamethasone: characteristics have been determined by [facility]. 1 mg dexamethasone overnight: 180-550 ng/dL (8:00-10:00 AM) Baseline: Less than 20 ng/dL It has not been cleared or approved by the FDA. This assay DEXAMETHASONE (68645) Reviewed date:05/15/2025 07:21:01 PM Interpretation: Performing Lab:Grant DANG/[facility],[address] [facility]alsCA[address] Desi Quick MD,PhD,FREDI Notes/Report: FASTING:YES FASTING: YES DEXAMETHASONE 126 used for clinical purposes. characteristics have been determined by [facility]. has been validated pursuant to the CLIA regulations and is Baseline: Less than 20 ng/dL This test was developed and its analytical performance Reference Ranges for Dexamethasone: It has not been cleared or approved by the FDA. This assay 1 mg dexamethasone overnight: 180-550 ng/dL (8:00-10:00 AM) CORTISOL, FREE, 24 HOUR URIN E (81256) Reviewed date:05/20/2025 09:09:58 PM Interpretation: Performing Lab:ALTON [facility],[address] [facility] Desi Quick MD,PhD,FREDI Notes/Report: SPLIT 05/13/2025 FROM [id number] URINE VOLUME: 2000/24 TOTAL VOLUME 2000 CORTISOL, FREE, URINE 24.9 4.0-50.0 mcg/24 h CORTISOL, FREE, URINE 16.5 Reference Range: ADULTS: 3.1-42.3 CREATININE, URINE 1.51 0.50-2.15 g/24 h It has not been cleared or approved by the FDA. This assay has been validated pursuant to the CLIA regulations and is used for clinical purposes. characteristics have been determined by [facility]. This test was developed and its analytical performance METHYLENETETRAHYDROFOLATE RE DUCTASE (MTHFR), DNA (87781) Reviewed date:05/20/2025 09:09:58 PM Interpretation: Performing Lab:ALTON [facility],[address] [facility] Desi Quick MD,PhD,FREDI Notes/Report: FASTING:NO COLLECTION KIT GIVEN TO PATIENT. PATIENT ADVISED TO RETURN. URINE VOLUME: 2000 FASTING: NO METHYLENETETRAHYDROFOLATE REDUCTASE (MTHFR), DNA POSITIVE COPY OF THE [id number] VARIANT RESULT: POSITIVE FOR ONE COPY OF THE C677T VARIANT AND ONE INTERPRETATION See Below characteristics have been determined by [facility] coronary artery disease and venous thromboembolism with mild mutations. (trans) or on the same chromosome (cis). Obstetricians and Gynecologists (ACOG) in the evaluation of a risk factor for coronary artery disease and venous the targeted regions, followed by melting curve analysis environmental factors. Recent studies do not support the the variants, C677T and E4022W in the MTHFR gene. This thromboembolism, consider additional testing such as plasma Administration. This assay has been validated pursuant to adverse outcome. This assay cannot determine of the selected regions of the MTHFR gene by polymerase coronary artery disease, venous thromboembolism and interpreted in context of clinical findings, relevant Reduced methylenetetrahydrofolate reductase (MTHFR) enzyme especially when present with low serum folate levels. Two venous thromboembolism or adverse outcome. Modest positive association has also been found between the Perfecto Lopez, Ph.D., FACMG, HCLD, CGMB. counselor or call [employer] ([phone]) for assistance and is not recommended by [employer] thromboembolism. Hyperhomocysteinemia is multifactorial, is being provided for informational/educational purposes genetic and non-genetic factors not screened for by this with a real time PCR system. Although rare, false positive [facility] [place]. It has not been hyperhomocysteinemia caused by reduced MTHFR activity. For additional information, please refer to risk of offspring with neural tube defects, neuropsychiatric Mild to moderate hyperhomocysteinemia has been identified as increased plasma homocysteine can be caused by a variety of INTERPRETATION: This individual is compound heterozygous for This test was developed and its analytical performance c.665C>T (p.A222V)] and B8127P [c. 1286A>C (p.E429A)] occur result is not associated with a significantly increased risk common variants in the MTHFR gene result in reduced enzyme homocysteine levels, factor V Leiden and prothrombin gene thermolabile variant of the MTHFR gene and many other Genetics and Genomics (ACMG) or the [place] [employer] of chain reaction (PCR) and fluorescent probes hybridization to the CLIA regulations and is used for clinical purposes. previously described association of increased risk for or false negative results may occur. All results should be history, and other laboratory data. Health care providers, frequently in the general population. for coronary artery disease, venous thromboembolism, or The C677T and R5988E variants are detected by amplification cleared or approved by the U.S. Food and Drug Therefore, the utility of MTHFR variant testing is uncertain disease, and chemotherapy toxicity. Increased risk of involving a combination of genetic, physiologic and only.) Laboratory testing supervised and results monitored by whether these two variants are on opposite chromosomes assay. If indicated by personal or family history of with interpretation of these results. activity. The thermolabile variant C677T [NM 879829.3: medical complications, such as recurrent loss, please contact your local [facility]'s genetic activity is a genetic risk factor for hyperhomocysteinemia, http://education.[employer] Learn[employer]ark.[employer]/faq/FAQ66 (This link Reason For Referral No Information Medications Medication SIG (Take, Route, Frequency, Duration) Notes Start Date End Date Status dexAMETHasone 1 MG Tablet 1 tablet Orally at 10 pm night before 8 am cortisol; Duration: 04/25/2025 Active Unithroid 75 MCG Tablet 1 tablet in the morning on an empty stomach Orally Once a day; Duration: 05/23/2025 Active dexAMETHasone 4 MG Tablet 1 tablet Orally at 10 pm night before 8 am cortisol; Duration: 07/04/2025 Active Liothyronine Sodium 5 MCG Tablet 1 tablet on an empty stomach Orally Once a day around noon; Duration: 05/23/2025 Active dexAMETHasone 4 MG Tablet 1 tablet Orally at 10 pm night before 8 am cortisol; Duration: 05/23/2025 Active Levothyroxine Sodium 75 MCG Tablet TAKE 1 TABLET BY MOUTH EVERY MORNING; Duration: 90 Active Unithroid 75 MCG Tablet 1 tablet in the morning on an empty stomach Orally Once a day; Duration: 30 01/22/2025 Active ZyrTEC 10 MG Tablet Chewable 1 tablet Orally Once a day Active Topamax 100mg at night Activ e Topamax 50 MG Tablet 1 tablet Orally Onc e a day in am Active Ergocalciferol 1.25 MG (51334 UT) Capsule 1 capsule Orally weekly; Duration: 90 days 01/22/2025 Active Unithroid 75 MCG Tablet 1 tablet in the morning on an empty stomach Orally Once a day; Duration: 90 02/25/2025 Active Social History Section Notes: Non-Contributory Non-Contributory Non-Contributory Problems Problem Type SNOMED Code ICD Code Onset Dates Problem Status W/U Status Risk Notes Problem Obese class II (461324208789051) Body mass index [BMI] 35.0-35.9, adult (Z68.35) Active confirmed Problem Body mass index 40+ - severely obese (643643206) Body mass index [BMI] 40.0-44.9, adult (Z68.41) Active confirmed Problem Polyarthritis (233683604) Polyarthritis (M13.0) Active confirmed Problem Vitamin D deficiency (76460742) Vitamin D deficiency (E55.9) Active confirmed Problem Hypothyroidism due to Gaby thyroiditis (374287496) 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 Morgan [address] [place] [phone] 01/22/2025 Cesia Morgan Hypothyroidism due t o Gaby thyroiditis E06.3 ; Vitamin D deficiency E55.9 ; Body mass index [BMI] 35.0-35.9, adult Z68.35 ; Obesity, class 2 E66.812 ; Other fatigue R53.83 and Dietary counseling and surveillance Z71.[address] Morgan [address] [place] [phone] 02/25/2025 Cesia Morgan Hypothyroidism due t o Gaby thyroiditis E06.3 ; Vitamin D deficiency E55.9 ; Body mass index [BMI] 40.0-44.9, adult Z68.41 ; Obesity, class 3 E66.813 ; Vitamin B12 deficiency E53.8 and Dietary counseling and surveillance Z71.[address] Morgan [address] [place] [phone] 04/25/2025 Cesia Morgan Hypothyroidism due t o Gaby thyroiditis E06.3 ; Vitamin D deficiency E55.9 ; Body mass index [BMI] 40.0-44.9, adult Z68.41 ; Family history of MTHFR deficiency Z83.49 ; Folic acid deficiency E53.8 and Abnormal weight gain R63.[address] 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 Morgan [address] [place] [phone] 07/04/2025 Cesia Morgan Hypothyroidism due t o Gaby thyroiditis E06.3 ; Body mass index [BMI] 40.0-44.9, adult Z68.41 ; MTHFR mutation Z15.89 ; Dietary counseling and surveillance Z71.3 and Impaired fasting glucose R73.01 AMMO [facility] [address] [place] [phone] 01/28/2025 Cesia Morgan Vitamin D deficiency E55.[address] [phone] 01/28/2025 Cesia Morgan Vitamin D deficiency E55.[address] [phone] 01/29/2025 Cesia Morgan AMMO [address] [phone] 02/24/2025 Cesia Morgan [address] [place] [phone] 05/23/2025 Cesia [place] [address] [phone] 05/23/2025 Cesia Morgan [address] [place] [phone] 04/02/2025 Cesia Morgan [address] [place] [phone] 04/11/2025 Cesia Morgan [address] [place] [phone] 04/17/2025 Cesia Morgan [address] [place] [phone] 06/26/2025 Cesia Morgan Assessments Encounter Date Diagnosis (ICD Code) Assessment Notes Treatment Notes Treatment Clinical Notes Section Notes 01/22/2025 Vitamin D deficiency (ICD-10 - E55.9) 01/22/2025 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) 01/28/2025 Vitamin D deficiency (ICD-10 - E55.9) 01/28/2025 Vitamin D deficiency (ICD-10 - E55.9) 02/25/2025 Vitamin D deficiency (ICD-10 - E55.9) 02/25/2025 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) 04/25/2025 Vitamin D deficiency (ICD-10 - E55.9) 04/25/2025 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) 05/23/2025 Body mass index [BMI] 40.0-44.9, adult (ICD-10 - Z68.41) 05/23/2025 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) 07/04/2025 Body mass index [BMI] 40.0-44.9, adult (ICD-10 - Z68.41) M 07/04/2025 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) M 07/04/2025 MTHFR mutation (ICD-10 - Z15.89) M 01/22/2025 Body mass index [BMI] 35.0-35.9, adult (ICD-10 - Z68.35) 05/23/2025 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 02/25/2025 Dietary counseling and surveillance (ICD-10 - Z71.3) Spent 15 minutes preventative counseling patient on dietary recommendations and changes in setting of hyperglycemia- need to restrict refined sugars and processed foods and incorporate up to 150 minutes of moderate level activity weekly. 05/23/2025 Dietary counseling and surveillance (ICD-10 - Z71.3) Spent 15 minutes preventative counseling patient on dietary recommendations and changes in setting of hyperglycemia- need to restrict refined sugars and processed foods and incorporate up to 150 minutes of moderate level activity weekly. 01/22/2025 Other Assessment and Plan: 1. Subclinical Hypothyroidism- Start Unithroid or Synthroid 50 mcg PO daily for 14 days- If improvement but not complete resolution after 14 days, increase to 75 mcg PO daily- Order thyroid panel in 3-4 weeks- Follow up in 4-6 weeks 2. Vitamin D Deficiency- Start vitamin D supplementation weekly for 2 months, then every other week until winter- Check vitamin D levels at follow-up 3. Low Testosterone- Check progesterone levels at follow-up- Consider adding progesterone if needed after assessing response to thyroid treatment 4. Depression- Continue current Zoloft 25 mg PO daily- Reassess mood and sleep at follow-up 5. Weight Gain- Monitor weight changes with thyroid treatment- Reassess at follow-up 6. Migraines- Monitor for changes in migraine frequency and intensity with thyroid treatment- Reassess at follow-up Follow-up:- Schedule follow-up appointment in 4-6 weeks- Monitor response to interventions and review lab results Spent 45 minutes preparing to see the patient (ex review of tests/chart), obtaining and / or reviewing separately obtained history, performing a medically appropriate examination and/or evaluation, counseling and educating the patient/family/acute care nurse, ordering medications, tests, or procedures, referring and communicating with other health critical care rn, documenting clinical information in the electronic or other health record, independently interpreting results and communicating results to the patient/family/acute care nurse and care coordinating patient plan. Patient alert and oriented x 4 and aware of discussion noted above and in agreeance to plan in management of hypothyroidism, vit D def, obesity/weight management and fatigue workup. Thank you for this consultation. 02/25/2025 Other Assessment and Plan: 1. Hypothyroidism- Continue Unithroid 75 mcg daily- Refill Unithroid 75 mcg prescription - Follow-up in 4 months- Obtain thyroid function tests 2 weeks prior to next appointment 2. Vitamin B12 and Folate Deficiency- Recommend [id number] methylated B12 supplement- Patient to purchase methylated B12 at the pharmacy 3. Vitamin D Supplementation - Continue vitamin D supplementation weekly until end of March- Decrease vitamin D supplementation to every other week after March 4. Migraines and Headaches- Continue current management- Monitor headache frequency and severity 5. Anxiety- Continue current evening dose of BuSpar- Continue Zoloft (dose not specified)- Monitor for any recurrence of anxiety symptoms 6. Gluten Sensitivity- Encourage continued awareness of gluten intake and its effects on symptoms- Consider further discussion of gluten-free diet options at next visit if symptoms persist Spent 25 minutes preparing to see the patient (ex review of tests/chart), obtaining and / or reviewing separately obtained history, performing a medically appropriate examination and/or evaluation, counseling and educating the patient/family/acute care nurse, ordering medications, tests, or procedures, referring and communicating with other health critical care rn, documenting clinical information in the electronic or other health record, independently interpreting results and communicating results to the patient/family/acute care nurse and care coordinating patient plan. 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 04/25/2025 Other Alysia, a patient with a history of thyroid issues, presents with complaints of headaches, cold intolerance, afternoon fatigue, and difficulty losing weight despite lifestyle modifications. Suspected Four Oaks's SyndromeAssessment: Patient reports symptoms consistent with potential hypercortisolism, including headaches, cold intolerance, afternoon fatigue, and weight gain resistant to diet and exercise. Previous thyroid function tests (T4 and T3) were within normal limits. A1c was 5.4%, and insulin levels were not remarkably elevated. Given the constellation of symptoms and difficulty with weight loss, further evaluation for Four Oaks's syndrome is warranted.Plan:- Prescribe dexamethasone 1 mg PO at 10 p.m. for overnight dexamethasone suppression test- Order morning cortisol level at 8 a.m. following dexamethasone administration- Order genetic testing for MTHFR mutation- Follow up within one month to review test results Nutritional DeficiencyAssessmen t: Patient's recent labs showed slightly low folic acid levels. Patient reports taking methylated folic acid or B12 supplements and consuming a diet rich in greens. Additionally, patient is following a gluten-free diet and taking vitamin D and magnesium supplements.Plan:- Continue current supplementation regimen (methylated folic acid or B12, vitamin D, magnesium)- Maintain gluten-free diet and high intake of green vegetables- Reassess nutritional status at follow-up visit Spent 25 minutes preparing to see the patient (ex review of tests/chart), obtaining and / or reviewing separately obtained history, performing a medically appropriate examination and/or evaluation, counseling and educating the patient/family/acute care nurse, ordering medications, tests, or procedures, referring and communicating with other health critical care rn, documenting clinical information in the electronic or other health record, independently interpreting results and communicating results to the patient/family/acute care nurse and care coordinating patient plan. Patient alert and oriented x 4 and aware of discussion noted above and in agreeance to plan in management of hypothyroidism, abnormal weight gain, fatigue, B12/folic acid def. Due to the nature of telemedicine, the ability to do physical assessment was limited to what can be accomplished by patient directed telehealth visit based on instruction. Those limits are understood by the patient and myself. Impression is based on history, available information, and physical findings accomplished with telehealth visit. Chronic disease/problem list/ medication list reviewed and updated where indicated. Discussed diagnosis, plan including risks, benefits, and options of treatment. Advised to call for new, worsening, or persistent symptoms. Level of patient risk was of moderate complexity due to the documented nature of presentation, the information assessment required and the nature of the development of an evaluation and treatment plan as documented. PMH, FHx, SHx, Surgical Hx, Quality management review carried out and addressed as documented today as part of this visit. Medication list was reviewed and adjusted as indicated. Medication requiring a refill was addressed. Risk and benefits of any new medications were discussed and all questions were answered. 05/23/2025 Other Alysia, a patient with a history of weight management issues and MTHFR gene mutation, presents for follow-up of recent lab results and discussion of weight loss strategies. 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 The dexamethasone suppression test was nearly positive, but there are concerns about the reliability of the test due to potential absorption issues. Urine cortisol was 20 and positive is over 60, and salivary cortisol was negative. Given these mixed results, further testing is warranted to confirm or rule out hypercortisolism.Pl an:- Repeat dexamethasone suppression test with a higher dose of dexamethasone at 4 mg- Prescribe Dexa tablet (new prescription sent to pharmacy) ObesityAssessment: Patient reports difficulty maintaining weight loss despite significant exercise (3-4 hours daily) and dietary efforts. Previously lost 70 pounds but regained most of it. Family history of obesity noted. Given the persistent weight management challenges and potential metabolic factors, considering pharmacological intervention for weight loss.Plan:- Discuss weight loss medication options (Wegovy, tirzepatide, semaglutide)- Prescribe weight loss medication (prescription to be sent to pharmacy)- Educate patient on insurance coverage for weight loss treatments, potentially based on BMI or associated medical conditions (e.g., sleep apnea, fatty liver disease)- Follow up on Aglutide coverage (expected to be fully covered in June) Vitamin B12 deficiencyAssessmen t: Recent B12 level was low at 412 despite patient taking B12 supplements. Patient started the supplement after the last appointment, and it may take a few months to see changes in levels.Plan:- Continue current B12 supplementation- Reassess B12 levels at next follow-up MTHFR gene mutation (heterozygote)Asses sment: Patient has a heterozygous MTHFR gene mutation. Given the family history of stroke and heart disease, further evaluation of homocysteine levels is warranted.Plan:- Order serum homocysteine test HypothyroidismAsses sment: Current thyroid function appears stable with T3 at 3.6, which is within normal range. Patient reports fatigue during the day and napping when inactive.Plan:- Continue current thyroid medication (Unithroid 75 mcg, prescription refill sent)- Optional: Trial of T3 supplementation (Liothyronine, prescription sent) - Instruct patient to discontinue if palpitations or flutters occur- Monitor for changes in symptoms and thyroid function Hyperlipidemia (borderline)Assessm ent: Recent cholesterol levels were not significantly elevated. Given family history of cardiovascular disease, preventive measures may be considered.Plan:- Consider fish oil supplementation or low-dose aspirin therapy- Encourage continued dietary modifications and regular exercise Possible inflammatory conditionAssessment : Patient history suggests potential inflammatory condition requiring further evaluation.Plan:- Order inflammatory markers: ESR, CRP, JONE, rheumatoid factor Spent 25 minutes preparing to see the patient (ex review of tests/chart), obtaining and / or reviewing separately obtained history, performing a medically appropriate examination and/or evaluation, counseling and educating the patient/family/acute care nurse, ordering medications, tests, or procedures, referring and communicating with other health critical care rn, documenting clinical information in the electronic or other health record, independently interpreting results and communicating results to the patient/family/acute care nurse and care coordinating patient plan. Patient alert and oriented x 4 and aware of discussion noted above and in agreeance to plan in management of hypothyroidism, obesity, MTHFR mutation, cortisol concerns and arthritis and need to rule out autoimmune ds. 07/04/2025 Other Alysia, a nearly 41-year-old female with a history of hysterectomy, presents with concerns about weight loss, thyroid issues, and possible hormonal imbalance. Weight lossAssessment: Patient reports an 8-pound weight loss since starting T3 medication. This weight loss appears to be unintentional and associated with a decreased appetite. Current weight management efforts do not include any weight loss medications due to insurance coverage issues. Recent lab work shows normal liver function tests (ALT, AST), insulin level of 10.8, and A1c of 5.4. Fasting glucose was 100 in April.Plan:- Maintain caloric intake of 4485-1655 calories daily, focusing on fruits, vegetables, and lean meats- Continue current medication regimen- Reassess weight in 3-4 months- If 15-20 pounds are lost in 6 months, avoid consideration of weight loss medications- Encourage eating even when not feeling hungry to prevent potential headaches Thyroid disorderAssessment: Patient is currently on Unithroid 75 mcg and reports improvement in anxiety and sleep since starting thyroid medication. The addition of T3 has also been associated with weight loss and decreased appetite.Plan:- Continue Unithroid- Monitor thyroid function and symptoms at follow-up Possible hypercortisolismAss essment: Previous dexamethasone suppression test result was 1.1, and salivary cortisol was 0.1. These results do not definitively rule out hypercortisolism, necessitating further monitoring and repeat testing.Plan:- Repeat dexamethasone suppression test in 3 months- Monitor for weight gain and development of stretch stover- Consider adding a cortisol katherine if symptoms worsen or test results indicate Nutritional deficiencyAssessmen t: Recent lab work indicates low folic acid levels. Homocysteine levels are not elevated, which is reassuring.Plan:- Start methylated B12 and folic acid supplementation Sleep disturbanceAssessme nt: Patient reports waking at 3 AM with occasional difficulty falling back asleep. This has improved since starting thyroid medication. Magnesium supplementation has been helpful for sleep.Plan:- Continue current management, including magnesium supplementation- Monitor sleep quality at follow-up Post-hysterectomy hormonal concernsAssessment: Patient underwent hysterectomy on January 22, 2023, with ovarian preservation. She reports feeling that something's off hormonally. At nearly 41 years old, she may be approaching perimenopause. No family history of estrogen-positive cancers reported.Plan:- Order hormone panel- Discuss results and potential hormone therapy options at follow-up, considering patient's age and risk factors Preventive careAssessment: Routine preventive care is important for overall health maintenance.Plan:- Ensure patient is up to date with mammograms- Schedule follow-up visit in 3-4 months Spent 25 minutes preparing to see the patient (ex review of tests/chart), obtaining and / or reviewing separately obtained history, performing a medically appropriate examination and/or evaluation, counseling and educating the patient/family/acute care nurse, ordering medications, tests, or procedures, referring and communicating with other health critical care rn, documenting clinical information in the electronic or other health record, independently interpreting results and communicating results to the patient/family/acute care nurse and care coordinating patient plan. Patient alert and oriented x 4 and aware of discussion noted above and in agreeance to plan in management of subclinical hypercortisolism concern, hypothyroidism, weight management, MTHFR mutation and borderline elevated fasting glucose. M Plan Of Treatment Next Appt Details Provider Name:Cesia Morgan, 10:40:00 AM, [address] [place], [address], Insurance Providers Payer Name Payer Address Payer Phone Subscriber Number Group Number Insured Name Patient Relationship to Insured Coverage Start Date Coverage End Date [facility] [address] [place] [phone] [id number] Alysia Rogel Self - patient is the insured Medical (General) History Medical History History ICD Code Migraines Surgical History Surgery Date(Month/Year) Hysterectomy 2022 foot 2021
--- OUTSIDE RECORDS SUMMARY | 2025-07-20 17:50 | XMS_ITS | Patient Health Record ---
Author Organization [facility] Address [address] [place], [place] [id number] Care Team Providers Care Sole Ruffer Name Role Phone MARCUS MCGILL Unavailable [phone] Reason For Referral No Information Medications Medication SIG (Take, Route, Frequency, Duration) Notes Start Date End Date Status Medrol Dosepak ORAL Medrol DosepakOr iginal MedicationMedrol Dosepak *Reorder from [facility] for eRx and Interaction Alerts* 02/03/2022 Active Plan Of Treatment No Information Insurance Providers Payer Name Payer Address Payer Phone Subscriber Number Group Number Insured Name Patient Relationship to Insured Coverage Start Date Coverage End Date [facility] [address] [place] [phone] [id number] CRISTY AUSTIN Self - patient is the insured
--- OUTSIDE RECORDS SUMMARY | 2025-07-20 17:50 | XMS_ITS | Encounter Summary ---
Author Organization [facility] Healthcare Address [address] [place] [address] Care Team Providers Care Carpet Technician Name Role Phone Sania Choi MD Primary Care Provide r Encounter Details Date Type Department Care Team (Late st Contact Info) Description 06/24/2025 Orders Only [facility] Medical Group Orthopedic and Sports Medicine [address] [place] [phone] Lev Tomas MD [address] [place] [address] [address] JENKINS [address] [address] Social History Tobacco Use Types Packs/Day Years Used Date Smoking Tobacco: Never Smokeless Tobacco: Never AUDIT-C Answer Date Recorded Q1: How often do you have a drink containing alcohol? Never 06/27/2025 Q2: How many drinks containi ng alcohol do you have on a typical day when you are drinking? Patient does not drink Q3: How often do you have si x or more drinks on one occasion? Never 06/27/2025 Comments Unknown Sex and Gender Information Value Date Recorded Sex Assigned at Not on file Legal Sex Female 1:02 PM [employer] Gender Identity Not on file Sexual Orientation Not on file documented as of this encounter Functional Status * AUDIT-C Score Answer Date of Assessment Author 0 06/27/2025 10:16 AM Karen Lewis MA * Question Answer Date of Assessment Author Q1: How often do you have a drink containing alcohol? Never 06/27/2025 10:16 AM Karen Lewis MA Q2: How many drinks containing alcohol do you have on a typical day when you are drinking? Patient does not drink 06/27/2025 10:16 AM CDT Karen Sparks MA Q3: How often do you have six or more drinks on one occasion? Never 06/27/2025 10:16 AM CDT Karen Sparks MA documented as of this encounter Plan of Treatment Not on file documented as of this encounter Visit Diagnoses Not on filedocumented in this encounter Care Teams Carpet Technician Relationship Specialty Start Date End Date Sania Choi MD [address] [address] PCP - General 11/20/24 documented as of this encounter
--- OUTSIDE RECORDS SUMMARY | 2025-07-20 17:50 | XMS_ITS | Encounter Summary ---
Author Organization [facility] Address [address] [place] [address] Care Team Providers Care Back Facer Name Role Phone None, Provider Primary Care Provider Wu Santillan DO Primary Care Provider [phone] Encounter Details Date Type Department Care Team (Late Contact Info) Description 03/26/2025 [employer] Message Enc [facility] Orthopedic & Sports Medicine - [address] [address] [place], [facility] Provider shoulder pain Social History Tobacco Use Types Packs/Day Years Used Date Smoking Tobacco: Never Smokeless Tobacco: Never Alcohol Use Standard Drinks/Week Comments Not Currently 0 (1 standard drink = 0.6 oz pur e alcohol) a beer or two a month PHQ-2 Answer Date Recorded Patient Health Questionnaire-2 Score 0 02/28/2025 Comments No Sex and Gender Information Value Date Recorded Sex Assigned at Female 11/22/2024 2:02 PM RANCH HAND Legal Sex Female 3:05 PM CDT Gender Identity Not on file Sexual Orientation Not on file documented as of this encounter Plan of Treatment Upcoming Encounters Date Type Department Care Team (Late st Contact Info) Description 03/02/2026 9:00 AM CDT Office Visit [facility] Multispecialty Care - [address], [address] [place] [id number] Luna Thornton MD [address] [place] [address] documented as of this encounter Visit Diagnoses Not on filedocumented in this encounter Care Teams Back Facer Relationship Specialty Start Date End Date None, Provider, PCP - General 06/03/22 03/30/25 Wu Valerio DO [address] [address] PCP - General FAMILY PRACTICE 03/31/25 documented as of this encounter
--- OUTSIDE RECORDS SUMMARY | 2025-07-20 17:50 | XMS_ITS | Encounter Summary ---
Author Organization [facility] Address [address] [place] [address] Care Team Providers Care Windows Server Administrator Name Role Phone TeodoroWu Primary Care Provider [phone] Encounter Details Date Type Department Care Team (Late Contact Info) Description 06/16/2025 MyChart Message Enc [facility] - [address], [address] [place] [phone] Luna Thornton MD [address] [place] [phone] Prior authorization for mediation Social History Tobacco Use Types Packs/Day Years [...] Sex Assigned at Female 11/22/2024 2:02 PM CORPORATE MANAGER Legal Sex Female 3:05 PM CDT Gender Identity Not on file Sexual Orientation Not on file documented as of this encounter Plan of Treatment Upcoming Encounters Date Type Department Care Team (Late Contact Info) Description 03/02/2026 9:00 AM CDT Office Visit [facility] - [address], [address] [place] [phone] Luna Thornton MD [address] [place], [place] [phone] documented as of this encounter Visit Diagnoses Not on filedocumented in this encounter Care Teams Windows Server Administrator Relationship Specialty Start Date End Date Wu Valerio DO 3 [facility], [address] [id number] PCP - General FAMILY PRACTICE 03/31/25 documented as of this encounter
--- OUTSIDE RECORDS SUMMARY | 2025-07-20 17:50 | XMS_ITS | Clinical Summary ---
Author Organization [facility] Address [address] [place] [address] Care Team Providers Care Parts Sales Manager Name Role Phone TeodoroWu Primary Care Provider Allergies Active Allergy Reactions Criticality Noted Date Comments Hydrocodone Vomiting 01/04/2023 Hydrocodone-Acetaminophen Itching 11/25/2024 Reaction(s): Dyspnea, Itching purpura Hydrocodone-Acetaminophen Hives 05/25/2022 And vomiting Medications busPIRone (BUSPAR) 10 MG tablet Take 1.5 tablets (15 mg total) by mouth 2 (two) times daily. Active ibuprofen (MOTRIN) 800 MG tablet Take 1 tablet (800 mg total) by mouth every 8 (eight) hours as needed for Pain. 30 tablet 01/04/2023 Active topiramate (TOPAMAX) 50 MG TabIndications:M igraine without aura, not intractable, without status migrainosus Take 2 tablets (100 mg total) by mouth nightly AND 1 tablet (50 mg total) daily. 270 tablet 3 11/25/2024 11/25/19 26 Active ubrogepant (UBRELVY) 100 MG tabletIndication s:Migraine without aura, not intractable, without status migrainosus Take 1 tablet (100 mg total) by mouth 2 (two) times daily as needed. Max of 2 tablets (200 mg) in 24 hours 16 tablet 5 11/25/2024 Active traMADol (ULTRAM) 50 MG tabletIndication s:Acute Pain < 3 Day Supply Take 1 tablet (50 mg total) by mouth every 6 (six) hours as needed. Indications: Acute Pain < 3 Day Supply 10 tablet 03/25/2025 Active Active Problems Problem Noted Date Diagnosed Date Menorrhagia with regular cycle 01/04/2023 Dysmenorrhea 01/04/2023 S/P hysterectomy 01/04/2023 Migraine 11/21/2022 Encounters Date Type Department Care Team Description 06/16/2025 MyChart Message Enc [facility] - [address], [address] [place] [phone] Luna Thornton MD Prior authorization for mediation from Last 3 Months Immunizations Immunization Administration Dates Next Due PFIZER COVID-19 (ORIGINAL FO RMULATION, PURPLE CAP) mRNA, LNP-S, PF, 30 MCG/0.3 ML DOSE 01/28/2021,01/07/2021 Family History Medical History Relation Comments Hyperlipidemia Father Anxiety Mother Depression Mother Fibromyalgia Mother Relation Status Comments Father Alive Mother Alive Social History Tobacco Use Types Packs/Day Years Used Date Smoking Tobacco: Never Smokeless Tobacco: Never Tobacco Cessation:Counseling Given: Yes Alcohol Use Standard Drinks/Week Comments Not Currently 0 (1 standard drink = 0.6 oz pur e alcohol) a beer or two a month PHQ-2 Answer Date Recorded Patient Health Questionnaire-2 Score 0 02/28/2025 Comments No Sex and Gender Information Value Date Recorded Sex Assigned at Female 11/22/2024 2: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 Sex Female 3:05 PM CDT Gender Identity Not on file Sexual Orientation Not on file Last Filed Vital Signs Vital Sign Reading Time Taken Comments Blood Pressure 123/78 03/25/2025 2:20 PM CDT Pulse 81 03/25/2025 2:20 PM CDT Temperature 36.6 C (97.9 F) 03/25/2025 2:20 PM CDT Respiratory Rate 18 03/25/2025 2:20 PM CDT Oxygen Saturation 98% 03/25/2025 2:20 PM CDT Inhaled Oxygen Concentration - - Weight 99.8 kg (220 lb) 03/25/2025 2:20 PM CDT Height 167.6 cm (5' 6) 03/25/2025 2:20 PM CDT Body Mass Index 35.51 03/25/2025 2:20 PM CDT Plan of Treatment Upcoming Encounters Date Type Department Care Team (Late st Contact Info) Description 03/02/2026 9:00 AM CDT Office Visit [facility] - [facility] [address] [facility], [address] [place] [phone] Luna Thornton MD [address] [place] [address] Health Maintenance Due Date Last Done Comments Annual Physical 1989 Hepatitis C 2004 HPV Vaccines (1 - 3-dose SCD M series) 2013 Cervical Cancer Screening Pa p with HPV Testing (Age 30 to 64) Every 5 Years 2016 Cervical Cancer Screening Pa p Smear (Age 30 to 64) Every 3 Years 02/28/2021 02/28/2018, 06/14/2006 Cervical Cancer Screening wi th HPV 02/28/2021 COVID-19 Vaccine (2024-2 6 season) 2025 01/28/2021, 01/07/2021 Influenza Adult (#1) 2025 08/22/2018, 08/14/2017, 08/05/2015 DTaP, Tdap and Td Vaccines ( 4 - Td or Tdap) 01/14/2035 01/14/2025, 08/14/2017, 03/30/2007 Hepatitis B Vaccines Completed 01/27/1998, 09/04/1997, 08/05/1997 PHQ-2 (Physician Maxwell) Completed 02/28/2025 Hepatitis A Vaccines Aged Out No long er eligible based on patient's age to complete this topic Meningococcal B Vaccine Aged Out No l onger eligible based on patient's age to complete this topic Meningococcal Vaccine Aged Out No jacinda anuj eligible based on patient's age to complete this topic Pneumococcal Vaccine: Pediatrics (0 to 5 Years) and At-Risk Patients (6 to 49 Years) Aged Out No longer eligible b ased on patient's age to complete this topic RSV Immunizations Under 20 Months Aged Out No longer eligible b ased on patient's age to complete this topic Insurance Advance Directives * Full Code (Latest Code Status on File) Date Activated Date Inactivated Comments 01/04/2023 10:46 AM 01/04/2023 3:35 PM Care Teams Parts Sales Manager Relationship Specialty Start Date End Date Wu Valerio DO 3 [facility], [address] [phone] PCP - General FAMILY PRACTICE 03/31/25
--- OUTSIDE RECORDS SUMMARY | 2025-07-20 17:50 | XMS_ITS | Encounter Summary ---
Author Organization [facility] Address [address] [place] [id number] Care Team Providers Care Metal Coater Operator Name Role Phone None, Provider Primary Care Provider Wu Santillan DO Primary Care Provider [phone] Encounter Details Date Type Department Care Team (Late Contact Info) Description 11/25/2024 MyCAthletic Standardt Message Enc [address], [address] [place] [phone] Luna Thornton MD [address] [place] [phone] Med update Social History Tobacco Use Types Packs/Day Years Used Date Smoking Tobacco: Never Smokeless Tobacco: Never Alcohol Use Standard Drinks/Week Comments Not Currently 0 (1 standard drink = 0.6 oz pur e alcohol) a beer or two a month Comments No Sex and Gender Information Value Date Recorded Sex Assigned at Female 11/22/2024 2: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 Sex Female 3:05 PM CDT Gender Identity Not on file Sexual Orientation Not on file documented as of this encounter Plan of Treatment Upcoming Encounters Date Type Department Care Team (Late Contact Info) Description 03/02/2026 9:00 AM CDT Office Visit [address], [address] [place] [phone] Luna Thornton MD [address] [place] [address] documented as of this encounter Visit Diagnoses Not on filedocumented in this encounter Care Teams Metal Coater Operator Relationship Specialty Start Date End Date None, Provider, PCP - General 06/03/22 03/30/25 Wu Valerio DO 3 [facility], [address] [phone] PCP - General FAMILY PRACTICE 03/31/25 documented as of this encounter
--- OUTSIDE RECORDS SUMMARY | 2025-07-20 17:50 | XMS_ITS | Data Portability ---
Author Organization [employer] , [facility]_Sean Address [address] [place] [address] Assessment No assessment recorded. Plan of Treatment Reminders Order Date Submit Date Provider Last Modified By Organization Details Last Modified Time Details Appointments None recorded. Lab biopsy, tissue 2022 023 [facility], [address] [place], [address], 3 18:20:41 test, urine 2022 023 [facility], [address] [place] [address], [address], 3 13:20:28 Referral None recorded. Procedures None recorded. Surgeries None recorded. Imaging None recorded. Medication Orders topiramate 100 mg tablet 2023 024 [facility], [address] [place] [address], [address], 4 10:41:10 topiramate 100 mg tablet 2022 023 [id number], [address], [address], 3 12:36:56 Patient TargetsNo targets recorded. Patient Instructions Encounter Date Encounter Id Patient Instructions Last Modified By Organization Details Last Modified Time 10/29/2024 [id number] A healthy lifestyle: care instructions Not available 10/29/2024 12:36:51 substance use disorder: care instructions Not available 10/29/2024 12:36:51 Following the [employer] Guide: Care Instructions Not available 10/29/2024 12:36:51 exercise program : getting started Not available 10/29/2024 12:36:51 Reason for Referral None Reported. Results Created Date Observation Date Name Description Value Unit Range Abnormal Flag Note LastModifiedBy Organization Detail LastModifiedTime 12/02/1912/06/2022 TISSU E PATHO LOGY clinical information Ganesh rhagi a Not Available [facility] [place] [address] [place], [address], 12/06/2022 18:20:41 12/02/1912/06/2022 TISSU E PATHO LOGY pathologist Danny Worthy M.D., Board Certi fied in Anato arnulfo Patho logy and Clini jessenia Patho logy. Phone (elec troni c signa ture) Not Available [facility] [address], [place], [address], 12/06/2022 18:20:41 12/02/19 23 12/06/2022 TISSU E PATHO LOGY A source Endom etriu m, biops y Not Available [facility] [address], [place], [address], 12/06/2022 18:20:41 12/02/19 23 12/06/2022 TISSU E PATHO LOGY A gross description Speci men is recei sarahi in forma tamy, label ed with multi ple patie nt ident ifier s and consi sts of multi ple fragm ents of soft tissu e aggre gatin g to 2.0 x 1.0 x 0.3 cm, irreg ular in shape and murphy-b rown in color . The speci men is entir kathya submi tted in one casse tte. Gross exam( s) perfo rmed at: [facility] [place] [address] [facility] [address], [place] [address] Labor atory Direc tor: KSENIA Estrada MD Not Available [facility] [place] [address] [place], [address], 12/06/2022 18:20:41 12/02/19 23 12/06/2022 TISSU E PATHO LOGY A diagnosis Benig n proli ferat jeannette phase endom etriu m. No hyper plasi a or malig kurt . Not Available [facility] [address], [place], [address], 12/06/2022 18:20:41 12/02/19 23 12/01/2022 pregn julisa test, urine HCG negati ve Not Available [facility] [address] [place], [address], 12/01/2022 12:54:54 12/23/1912/22/2022 CBC WITH DIFF WBC 5.9 x10'3 /uL 4.5-11 .0 Not Available [facility] (Lab) [place], [address], 12/22/2022 16:52:56 12/23/19 23 12/22/2022 CBC WITH DIFF RBC 4.57 x10'6 /uL 4.20-5 .40 Not Available [facility] (Lab) [address] [facility], [place], [address], 12/22/2022 16:52:56 12/23/19 23 12/22/2022 CBC WITH DIFF hemoglobin 11.7 g/dL 12.0-1 6.0 low Not Available [facility] (Lab) [place], [address], 12/22/2022 16:52:56 12/23/19 23 12/22/2022 CBC WITH DIFF hematocrit 37.9 % 38.0-4 8.0 low Not Available [facility] (Lab) [address] [facility], [place], [address], 12/22/2022 16:52:56 12/23/1912/22/2022 CBC WITH DIFF MCV 82.9 fL 81.0-9 9.0 Not Available [facility] (Lab) [address], [place], [address], 12/22/2022 16:52:56 12/23/1912/22/2022 CBC WITH DIFF MCH 25.6 pg 27.0-3 1.0 low Not Available [facility] (Lab) [address], [place], [address], 12/22/2022 16:52:56 12/23/1912/22/2022 CBC WITH DIFF MCHC 30.9 g/dL 32.0-3 6.0 low Not Available [facility] (Lab) [address] [facility], [place], [address], 12/22/2022 16:52:56 12/23/1912/22/2022 CBC WITH DIFF RDW 14.3 % 11.5-1 4.5 Not Available [facility] (Lab) [address], [place], [address], 12/22/2022 16:52:56 12/23/1912/22/2022 CBC WITH DIFF platelet count 337 x10'3 /uL 130-40 0 Not Available [facility] (Lab) [address] [facility], [place], [address], 12/22/2022 16:52:56 12/23/1912/22/2022 CBC WITH DIFF MPV 9.3 fL 9.3-12 .2 Not Available [facility] (Lab) [address], [place], [address], 12/22/2022 16:52:56 12/23/1912/22/2022 CBC WITH DIFF diff type AUTOMA REAL DIFFER ENTIAL Not Available [facility] (Lab) [address], [place], [address], 12/22/2022 16:52:56 12/23/1912/22/2022 CBC WITH DIFF neutrophils 66.3 % Not Available [facility] (Lab) [address], [place], [address], 12/22/2022 16:52:56 12/23/1912/22/2022 CBC WITH DIFF lymphocytes 26.0 % Not Available [facility] (Lab) [address], [place], [address], 12/22/2022 16:52:56 12/23/1912/22/2022 CBC WITH DIFF monocytes 5.9 % Not Available [facility] (Lab) [address], [place], [address], 12/22/2022 16:52:56 12/23/1912/22/2022 CBC WITH DIFF eosinophils 1.0 % Not Available [facility] (Lab) [address], [place], [address], 12/22/2022 16:52:56 12/23/1912/22/2022 CBC WITH DIFF basophils 0.5 % Not Available [facility] (Lab) [address], [place], [address], 12/22/2022 16:52:56 12/23/19 23 12/22/2022 CBC WITH DIFF immature granulocytes 0.3 % Not Available [facility] (Lab) [place], [address], 12/22/2022 16:52:56 12/23/1912/22/2022 CBC WITH DIFF abs. neutrophils 3.90 x10'3 /uL 1.80-7 .70 Not Available [facility] (Lab) [place], [address], 12/22/2022 16:52:56 12/23/1912/22/2022 CBC WITH DIFF abs. lymphocytes 1.53 x10'3 /uL 1.00-4 .80 Not Available [facility] (Lab) [place], [address], 12/22/2022 16:52:56 12/23/1912/22/2022 CBC WITH DIFF abs. monocytes 0.35 x10'3 /uL 0.24-0 .86 Not Available [facility] (Lab) [place], [address], 12/22/2022 16:52:56 12/23/1912/22/2022 CBC WITH DIFF abs. eosinophils 0.06 x10'3 /uL 0.04-0 .36 Not Available [facility] (Lab) [address], [place], [address], 12/22/2022 16:52:56 12/23/1912/22/2022 CBC WITH DIFF abs. basophils 0.03 x10'3 /uL 0.01-0 .08 Not Available [facility] (Lab) [place], [address], 12/22/2022 16:52:56 12/23/1912/22/2022 CBC WITH DIFF abs. immature grans 0.02 x10'3 /uL 0.00-0 .49 Not Available [facility] (Lab) [place], [address], 12/22/2022 16:52:56 12/23/1912/22/2022 TYPE AND SCREE N ABO/Rh(D) A POSITI VE Not Available [facility] (Lab) [address], [place], [address], 01/04/2023 08:55:37 12/23/1912/22/2022 TYPE AND SCREE N antibody screen NEGATI VE Not Available [facility] (Lab) [address], [place], [address], 01/04/2023 08:55:37 12/23/1901/04/2023 TYPE AND SCREE N xm expiration 2022,2 359 Not Available [facility] (Lab) [address], [place], [address], 01/04/2023 08:55:37 12/23/1901/04/2023 TYPE AND SCREE N comment NO HISTOR Y OF TRANSF USIONS ,PREGN JULISA OR ANTIBO DIES, NEW SPECIM EN NOT NEEDED Not Available [facility] (Lab) [address], [place], [address], 01/04/2023 08:55:37 01/05/2001/04/2023 SERUM PREGN JULISA TEST serum test NEGATI VE Not Available [facility] (Lab) [address], [place], [address], 01/04/2023 08:14:40 01/05/2001/05/2023 ZO SURGI JESSENIA PATHO LOGY path report [facility] [address] [place] [facility] [address] Phone : [phone] Fax: Depar tment of Patho logy Patho logy Repor t SURGI JESSENIA FINAL REPOR T Arlene rothman Name: ALYSIA ROGEL tab# : [id number] : 1984 (Age: 37) Locat ion: [facility] S Gende r: F Colle cted Date: Med Rec #: [id number] Date Recei sarahi: Date Repor real: Provi giovanni: ADELINE WALLACE MD Speci men(s ) Uteru s Final Patho logic Diagn osis UTERU S, CERVI X, HYSTE RECTO MY: NO HISTO PATHO LOGIC ABNOR MALIT Y UTERU S, ENDOM ETRIU M, HYSTE RECTO MY: SECRE TORY ENDOM ETRIU M NO EVIDE NCE OF HYPER PLASI A OR MALIG KURT UTERU S, MYOME TRIUM , HYSTE RECTO MY: LEIOM YOMA, 1.1 CM FALLO PIAN TUBES , BILAT ERAL, SALPI NGECT OMIES : BENIG N PARAT UBAL CYSTS Kassidy ctron icall y Leanne d Out BRAXTON SOSA MD Patho logis t SMO:l c Micro scopi c Descr iptio n: Micro scopi c exami natio n subst antia kain above diagn osis. Gross Descr iptio n Recei sarahi is a singl e forma tamy-f illed conta iner label ed with the patie nt's name (Alysia Rogel) , date of (03/02 6), colle ction time 01/04 at 0835, and addit ional ly label ed uter us. The speci men consi sts of a 195-g sahara in aggre gate weigh t uteru s with attac hed cervi x and attac hed bilat eral purpl e-murphy fimbr iated fallo pian tubes . The uteru s measu res 10.8 cm from fundu s to cervi x, 8.0 cm from cornu to cornu , and 5.8 cm from anter ior to poste rior uteri ne body, with an attac hed cervi x measu ring 4.3 x 4.3 cm. The cervi x has protr uding sligh tly mucin ous hemor rhagi c mater ial comin g from the os. The seros a is pink- murphy and navin h. The uteru s is bival sarahi to revea l a uteri ne cavit y measu ring 6.0 x 4.0 cm. The endom etriu m is pink- red to red-t an and sligh tly sloug joanne, avera ging 0.1 cm in thick ness. The myome trium is secti oned to revea l a singl e under lying white -murphy whorl ed nodul e measu ring 1.1 cm in great est dimen tab. There are ident ifiab le areas of hemor rhage , calci ficat ion or necro sis prese nt upon secti oning of the nodul e. The remai ana myome trium is pink- murphy and marke dly trabe culat ed, avera ging 2.5 cm in thick ness. The cervi jessenia canal is paten t with under lying cavit ies that conta in semi- trans lucen t gelat inous mater ial. The left fallo pian tube measu res 7.0 cm in lengt h with a diame ter up to 1.1 cm, with an attac hed intac t parat ubal cyst measu ring 1.0 cm in great est dimen tab that conta ins trans lucen t fluid . The right fallo pian tube measu res 7.5 cm in lengt h with a diame ter up to 1.0 cm, with an attac hed intac t parat ubal cyst measu ring 1.5 cm in great est dimen tab that conta ins trans lucen t fluid . Secti oning of the fallo pian tubes revea ls a pinpo int lumen . Repre senta tive secti ons are submi tted as follo ws: 1 - Repre senta tive anter ior cervi x 2 - Repre senta tive poste rior cervi x 3 - Repre senta tive left fallo pian tube to inclu de fimbr ia submi tted entir kathya in addit ion to evacu ated parat ubal cyst submi tted entir kathya 4 - Right fallo pian tube fimbr ia submi tted entir kathya in addit ion to repre senta tive evacu ated parat ubal cyst 5 - Repre senta tive full- thick ness right fallo pian tube cross secti ons 6-8 - Repre senta tive full- thick ness anter ior endom yomet rium (cont iguou s secti ons in casse ttes 7-8) to inclu de repre senta tive myome trial nodul e in casse tte 8 9-11 - Repre senta tive full- thick ness poste rior endom yomet rium (cont iguou s secti ons in casse ttes 10-11 ) :liang nicole Fee Code( s): 82059 Not Available [facility] (Lab) [place], [address], 01/05/2023 14:21:04 Result Notes None recorded. Problems Name Problem SNOMED Code Status Onset Date Resolution Date Notes Provider Name and Address Organization Details Recorded Time Migraine 58392235 Active 2022 Adeline Wallace MD [facility] [place], [address], [facility] [facility] 3 12:05:32 Hysterectomy Active 2022 Tawanna nixon, [employer] [facility] 4 10:12:16 Body mass index 30+ - obesity 949697947 Active 2023 Tawanna Peters null, [employer] [facility] 5 12:10:06 Problem Notes None recorded. Procedures Surgical History Date Name Laterality Status Provider Name and Address Organization Details Recorded Time 3 Suture/Staple removal completed Adeline Wallace MD [facility] [place], [address], [facility] 02/13/2023 14:37:02 3 Suture/Staple removal completed Adeline Wallace MD [address] [place] [address], [address], [facility] IV 01/16/2023 12:10:06 3 Tlh w/t/o 250 g or less completed Dalila Wallace [facility] 04/15/2023 10:53:12 3 Endometrial Biopsy completed Adeline Wallace MD [address] [place] [address], [address], [facility] 12/01/2022 13:31:40 1 Most Recent Mammogram completed [facility] 12/01/2022 12:50:27 8 Date of Last Pap Smear completed Tawanna [facility] 10/20/2022 14:36:21 D & C completed Tawanna [facility] 10/20/2022 14:36:22 Imaging Results None recorded. Procedure Notes None recorded. Medical Equipment None Reported. Allergies Allergen ID Allergen Name Allergen Category Reaction Reaction Severity Criticality Documentation Date Start Date Code Code System Note Provider Name and Address Organization Details Recorded Time 972149 hydrocodo ne Not available vomiting Not available Not available 10/20/20222022 5489 RxNorm Adeline Wallace MD [address] [place] [address], [phone], [facility] 12:05:32 Medications Name Sig Start Date Stop Date Status Note LastModified by Organization Details LastModified Time celecoxib 200 mg capsule TAKE 1 CAPSULE BY MOUTH TWICE A DAY 10/29 completed Not Available Not Available Not Available methocarbam ol 500 mg tablet TAKE 2 TABLETS BY MOUTH 4 TIMES A DAY FOR 7 DAYS 10/29 completed Not Available Not Available Not Available cetirizine 10 mg tablet TAKE 1 TABLET BY MOUTH EVERY DAY NEEDED FOR ALLERGY 10/29 completed Not Available Not Available Not Available ibuprofen 800 mg tablet TAKE 1 TABLET BY MOUTH EVERY 8 HOURS NEEDED FOR PAIN 02/14 completed Not Available Not Available Not Available fluconazole 150 mg tablet 10/29 completed Not Available Not Available Not Available hydrocodone 5 mg-acetamin ophen 325 mg tablet TAKE 1 OR 2 TABLETS BY MOUTH EVERY 4 TO 6 HOURS NEEDED FOR PAIN 10/20 completed Not Available Not Available Not Available topiramate 25 mg tablet TAKE 1 TABLET BY MOUTH EVERYDAY AT BEDTIME 01/17 completed Not Available Not Available Not Available omeprazole 40 mg capsule,del ayed release TAKE 1 CAPSULE BY MOUTH EVERY DAY 30 TO 60 MINUTES BEFORE A MEAL active Not Available Not Available No t Available tramadol 50 mg tablet TAKE 1 TABLET BY MOUTH EVERY 4 TO 6 HOURS NEEDED FOR PAIN 10/20 completed Not Available Not Available Not Available oxycodone-a cetaminophe n 5 mg-325 mg tablet TAKE 1-2 TABLETS BY MOUTH EVERY 4 (FOUR) HOURS NEEDED FOR ACUTE PAIN < 7 DAY SUPPLY 01/17 completed Not Available Not Available Not Available propranolol 40 mg tablet 40 mg by oral route. 12/22 completed Not Available Not Available Not Available amitriptyli ne 25 mg tablet Take 25 mg every day by oral route. 11/04 completed Not Available Not Available Not Available buspirone 10 mg tablet Take 15 mg twice a day by oral route. 01/17 completed Not Available Not Available Not Available BuSpar 30 mg tablet Take 15 mg twice a day by oral route. 10/24 completed Not Available Not Available Not Available docusate sodium 100 mg capsule TAKE 1 CAPSULE BY MOUTH 2 TIMES DAILY NEEDED FOR CONSTIPAT ION. 02/14 completed Not Available Not Available Not Available sertraline 25 mg tablet 10/29 completed Not Available Not Available Not Available methylpredn isolone 4 mg tablets in a dose pack TAKE 6 TABLETS ON DAY 1 DIRECTED ON PACKAGE AND DECREASE BY 1 TAB EACH DAY FOR A TOTAL OF 6 DAYS 10/20 completed Not Available Not Available Not Available albuterol sulfate HFA 90 mcg/actuati on aerosol inhaler INHALE 2 PUFFS BY MOUTH EVERY 4 HOURS NEEDED FOR WHEEZING NEEDED active Not Available Not Available No t Available topiramate 100 mg tablet TAKE 1 TABLET BY MOUTH EVERY DAY AT BEDTIME 2024 active Not Available Not Available Not Avai lable sertraline 50 mg tablet active Not Available Not Available Not Available amoxicillin 875 mg-potmatiasu m clavulanate 125 mg tablet 10/29 completed Not Available Not Available Not Available nabumetone 500 mg tablet TAKE 1 TABLET BY MOUTH TWICE A DAY 10/20 completed Not Available Not Available Not Available buspirone 15 mg tablet TAKE 1 TABLET BY MOUTH TWICE DAILY active Not Available Not Available No t Available topiramate 50 mg tablet Take 50 mg by oral route. 10/24 completed Not Available Not Available Not Available Nasal Decongestan t (oxymetazol ine) 0.05 % spray 10/29 completed Not Available Not Available Not Available Vitals Date Recorded Body height Body mass index (BMI) Body weight Systolic And Diastolic Provider Name and Address Organization Details Last Updated DateTime 10/24/2023 167.64 cm 36.1 kg/m2 917652.25 g 130/76 mm[Hg] [facility] [employer] [facility] 10/24/2023 10:22:42 Date Recorded Body height Body mass index (BMI) Body weight Systolic And Diastolic Provider Name and Address Organization Details Last Updated DateTime 10/29/2024 167.64 cm 40.1 kg/m2 161344.34 g 128/78 mm[Hg] [facility] [employer] [facility] 10/29/2024 12:16:28 Date Recorded Body height Body mass index (BMI) Body weight Systolic And Diastolic Provider Name and Address Organization Details Last Updated DateTime 12/01/2022 167.64 cm 42.9 kg/m2 459281.57 g 124/80 mm[Hg] [facility] [employer] [facility] 12/01/2022 12:48:57 Date Recorded Body height Body mass index (BMI) Body weight Systolic And Diastolic Provider Name and Address Organization Details Last Updated DateTime 01/17/2023 167.64 cm 39.9 kg/m2 975708.32 g 116/78 mm[Hg] [facility] [employer] [facility] 01/17/2023 10:19:12 Date Recorded Body height Body mass index (BMI) Body weight Systolic And Diastolic Provider Name and Address Organization Details Last Updated DateTime 02/14/2023 167.64 cm 40 kg/m2 917505.91 g 118/80 mm[Hg] Alice Peters [facility] [employer] [facility] 02/14/2023 12:01:53 Social History Question Answer Notes LastModified by [employer] Authors Details LastModified Time Tobacco Smoking Status Never Smoker Tawanna Peters null, [facility] [employer] [facility] 10/20/2022 14:36:22 If You Are , What Was Your Level Of Alcohol Consumption Prior To ? None [email or web address] Information not available 10/29/2024 Are You Blind Or Do You Have Difficulty Seeing? No [email or web address] Information not available 10/29/2024 Are You Deaf Or Do You Have Serious Difficulty Hearing? No [email or web address] Information not available 10/29/2024 What Type Of Diet Are You Following? REGULAR [email or web address] Information not available 10/20/2022 How Many Children Do You Have? 3 [email or web address] Information not available 12/01/2022 What Is Your Relationship Status? Information not available 10/20/2022 Are You Sexually Active? Yes [email or web address] Information not available 10/20/2022 What Types Of Sporting Activities Do You Participate In? Spin, Weight Lifting [email or web address] Information not available 10/29/2024 Sex: Unknown Functional Status Question Answer Note LastModified by Organizat ion Details LastModified Time Do you use any illicit or recreational drugs? No [email or web address] Information not available 10/29/2024 What is your level of alcohol consumption? Occasional [email or web address] Information not available 10/20/2022 Are you currently employed? 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 Never used electronic cigarettes [email or web address] Information not available 10/20/2022 What is your exercise level? Occasional [email or web address] Information not available 10/20/2022 Mental Status None recorded. Family History Relationship Description Onset Age of this Age Resolved Age Notes LastModified by Organization Details LastModified Time Maternal Grandmother Depressive disorder [email or web address] Not available 10/20 14:36:21 Maternal Grandmother Diabetes mellitus [email or web address] Not available 10/20 14:36:21 Father Hypercholest erolemia [email or web address] Not available 10/20 14:36:21 Father Heart disease [email or web address] Not available 10/20 14:36:21 Father Hypertensive disorder [email or web address] Not available 10/20 14:36:21 Mother Diabetes mellitus Not available 10/20 14:36:21 Mother Hypothyroidi sm [email or web address] Not available 10/20 14:36:21 Mother Depressive disorder [email or web address] Not available 10/20 14:36:21 Sister Depressive disorder [email or web address] Not available 10/20 14:36:21 Medical History Condition Response Anxiety Disorder Y Headaches/migraines Y High Cholesterol Y Gynecological History Statement/Question Response If Post Menopausal, Age at Menopause Flow Heavy Date of last HPV 02/28/2018 Frequency of Cycle (Q days) 28 Date of LMP 11/17/2022 Date of Last Pap Smear 02/28/2018 Duration of Flow (days) 7 Most Recent Mammogram 08/02/2021 Current Control Method Partner Vas ectomy Age at Menarche 14 Obstetrics History GPAL:G 3 P 3 0 0 3 Type Value Full Term 3 Living 3 Total 3 Immunizations Vaccine Type Date Status Note Provider Nam e and Address Organization Details Recorded Time COVID-19, mRNA, LNP-S, PF, 30 mcg/0.3 mL dose 01/07/2021 completed Adeline Wallace MD [address] [place] [address], [phone], [facility] [employer] [facility] 01/16/2023 12:05:32 COVID-19, mRNA, LNP-S, PF, 30 mcg/0.3 mL dose 01/28/2021 completed Adeline Wallace MD [address] [place] [address], [address], [facility] [employer] [facility] 01/16/2023 12:05:32 Past Encounters Encounter ID Performer Location Encounter Start Date Encounter Closed Date Diagnosis/Indication Diagnosis SNOMED-CT Code Diagnosis ICD10 Code Diagnosis IMO Codes Diagnosis Note [id number] Adeline Wallace MD [facility] [address] [place] [address] 10/20/2022 14:11:32 10/24/2022 14:39:43 Menstrual migraine 21354358 G43.829 stop amitriptyl ine. Start topiramate for migraine prevention as well as curbing appetite. Suggested food diary and increased exercise especially with focus on weight training. Menorrhagia 676755497 N9 2.0 discussed hormonal contracept barry (patient had rash with Mirena IUD), endometria l ablation (not ideal candidate given patient age and weight - discussed) , and hysterecto my. Patient to have labs and ultrasound . Should come back in 1 month for follow up. Dysmenorrhea 209110480 N 94.6 Obesity 390056022 E66.9 [id number] Adeline Wallace MD [facility] [address] [place] [address] 11/04/2022 08:44:58 11/04/2022 09:32:11 Menorrhagia 114449661 N92.0 discussed hormonal contracept barry (patient had rash with Mirena IUD), endometria l ablation (not ideal candidate given patient age and weight - discussed) , and hysterecto my. Patient to have labs and ultrasound . discussed hormonal contracept jeannette, hysterosco py, and hysterecto my. Patient is leaning towards hysterecto my. Needs EMB. Dysmenorrhea 842706226 N 94.6 Menstrual migraine 88529 000 G43.829 no migraine last menstruati on Obesity [id number] E66.9 Encouraged continued weight loss [id number] Adeline Wallace MD [facility] [address] [place] [address] 12/01/2022 12:33:11 12/01/2022 13:34:24 Menorrhagia [id number] N92.0 EMB [id number] Adeline Wallace MD [facility] [address] [place] [address] 01/17/2023 10:08:09 01/17/2023 10:38:21 Postoperative visit [id number] Z09 Discussed postoperat jeannette pathology with patient. Reviewed Surgical findings. Patient instructed to maintain strict pelvic rest and no heavy lifting greater than 20 lbs. She was instructed to return for a second postoperat jeannette visit in 4 weeks to evaluated the vaginal cuff. All of her questions were answered. [id number] Adeline Wallace MD [address] [address] 02/14/2023 11:27:18 02/14/2023 12:37:44 Postoperative visit [id number] Z09 Routine post operative care. May return to normal activities . Discussed careful return to vaginal intercours e. Reviewed Pathology findings with the patient. All questions answered to fullest extent. Follow up per routine MIS SPECIALIST care. Migraine [id number] G43.90 9 [id number] Adeline Wallace MD [address] [address] 10/24/2023 09:51:22 10/25/2023 11:39:16 Migraine 10598116 G43.909 Magnesium glycinate daily recommende d. Body mass index 30+ - obesity [id number] Z68.36 Add strength [facility]. [id number] Adeline Wallace MD [address] [address] 10/29/2024 12:07:46 10/29/2024 13:17:27 Gynecologic examination [id number] Z01.419 Patient is an establishe d patient who presents for a gynecologi jessenia Annual Exam. Medical, family and social history reviewed. The patient denies any changes. Adequate changes were made. A nnual Exam:She reports having no significan t MIS SPECIALIST symptoms.P atient has had hysterecto my. Pap History:La st pap: 02/28/2018 NILM, HPV neg B reast History:Turner s felt large lump, Left lower quadrant, mobile, tender approx size of quarter. Education on Breast Self Awareness given.PCP sent referral for diagnostic mammogram, recommend also U/S of left breast. F amily History:Ne gative for Breast Cancer, Cervical Cancer, Colon Cancer, Endometria l Cancer and Ovarian Cancer. Social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
[2025-07-20 17:52] VITALS: BP 123/60; PULSE 68; RESP 20; TEMP 36.4; O2SAT 98
[2025-07-20 18:09] LABS: EDSTREPNEGPOS1 Negative (Negative)
[2025-07-20 18:27] LABS: EDCOVIDSCREEN Negative (Negative); EDINFLUASCREEN Negative (Negative); EDINFLUBSCREEN Negative (Negative)
== END 2025-07-20 18:29 | disposition home or self-care (01) ==
PROVIDERS: Emergency Provider Nurse Practitioner
DX: B34.9 Viral infection, unspecified (principal); J06.9 Acute upper respiratory infection, unspecified; J02.9 Acute pharyngitis, unspecified; Z20.822 Contact with and (suspected) exposure to COVID-19; J45.909 Unspecified asthma, uncomplicated; Z87.891 Personal history of nicotine dependence
CPT/HCPCS: 87081; 87426; 87804; 87880; 99213; G0463